=== PATIENT | female | born 1975 | race Caucasian/White ===

== ENCOUNTER 2016-12-01 05:52 | Day surgery (SDC) | payer OTHER ==
[2016-12-01] VITALS (28 sets, daily range): BP systolic 96–125; BP diastolic 53–78; PULSE 64–107; RESP 14–24; TEMP 96.3–98.2; O2SAT 89–98; Ht 160 cm; Wt 86.7 kg
[~2016-12-01] VITALS: Ht 160 cm; Wt 86.7 kg
[2016-12-01 06:24] LABS: BASOPHILS % (AUTO) 0.3 % (0-2); EOSINOPHILS # (AUTO) 0.2 T/MM3 (0-0.5); EOSINOPHILS % (AUTO) 2.3 % (0-4); HGB - HEMOGLOBIN 13.5 GM/DL (12-16); IMMATURE GRANULOCYTE # (AUTO) 0.01 T/MM3 (0.00-0.03); IMMATURE GRANULOCYTE % (AUTO) 0.1 % (0.0-0.5); LYMPHOCYTES # (AUTO) 2.8 T/MM3 (1-4.8); LYMPHOCYTES % (AUTO) 28.2 % (23-45); MEAN CORPUSCULAR HGB 30.5 UUG (26-34); MEAN CORPUSCULAR HGB CONC(MCHC 33.8 GM/DL (31-37); MEAN CORPUSCULAR VOLUME 90.3 UM3 (80-100); MONOCYTES # (AUTO) 0.6 T/MM3 (0-0.8); MONOCYTES % (AUTO) 5.9 % (0-9.0); NEUTROPHILS #(AUTO)-ABSOLUTE 6.3 T/MM3 (1.8-7.7); NEUTROPHILS % (AUTO) 63.2 % (33-66); RED BLOOD COUNT 4.43 M/MM3 (4.00-5.20)
[2016-12-01 06:33] LABS: ALBUMIN 4.2 G/DL (3.5-5.0); ALBUMIN/GLOBULIN RATIO 1.3 RATIO (1.1-2.2); ALKALINE PHOSPHATASE 68 U/L (38-126); ALT (SGPT) 42 U/L (9-52); ANION GAP 12 MEQ/L (5-15); AST (SGOT) 20 U/L (14-36); BUN/CREATININE RATIO 10 RATIO (6-26); CALCIUM 9.2 MG/DL (8.4-10.2); CHLORIDE 104 MEQ/L (98-107); CO2 - CARBON DIOXIDE 26 MEQ/L (22-30); CREATININE 0.7 MG/DL (0.7-1.2); GLOMERULAR FILTRATION RATE 93; GLUCOSE 102 MG/DL (65-110); POTASSIUM 3.8 MEQ/L (3.6-5); SODIUM 142 MEQ/L (134-144); TOTAL PROTEIN 7.4 G/DL (6.3-8.2)
--- NOTE | 2016-12-01 06:50 | ANESPREOP ---
Anesthesia Record Date and Time DATE: 12/01/16 TIME: 06:49 Pre-Op Diagnosis Dysmenorrhea Proposed Surgical Procedure ROBOTIC TOTAL LAP HYST NPO since: Midnight Allergies: Coded Allergies: cefadroxil (Verified Allergy, Mild, HIVES, 12/01/16) morphine (Verified Allergy, Mild, HIVES, 12/01/16) Ht/Wt/BMI Height: 5 ' 3.00 " Weight: 84.800 kg BMI: 33.1 kg/m2 Vital Signs Date Time Temp Pulse Resp B/P Pulse Ox O2 Delivery O2 Flow Rate FiO2 12/01/16 06:05 98.2 77 14 109/74 96 Room Air Medications Inpatient Medications Current Medications Medications (Trade) Dose Ordered Sig/Romario Start Time Stop Time Status Last Admin Dose Admin Lactated Ringer's (Lactated Ringers) 1,000 ml @ 100 mls/hr Q10H 12/01/16 07:00 12/01/16 06:40 100 MLS/HR Currently on Beta Kiley: No Medical/Surgical History Anesthesia PMH: Denies: Anesthesia Reactions (NO AIRWAY ISSUES, SLOW TO WAKE), Cancer, Clotting Problems, Glaucoma, Malignant Hyperthermia, Renal Disease, Sleep Apnea Smoking Status: Never smoker Has pt. smoked today?: No Use Chewing Tobacco?: No Second Hand Exposure: No Substance Use Type: does not use Alcohol Intake: none HX of Last Menstrual Period: november 2016 Past Surgical History Orthopedic Surgeries: Yes - LEG PLATE AND SCREW-L Abdominal Surgeries: Yes - APPY Genitourinary Surgeries: Cardiac Surgeries: Endocrine Surgeries: Reproductive Surgeries: Yes - OVARIAN CYSTECTOMY Neurological Surgeries: Ear Surgeries: Nose Surgeries: Throat Surgeries: Other Surgeries: Yes - left hand nerve repair Anesthesia Adverse Reactions: FOUND none Family Hx of Anesthesia Advers: none Hx of Motion Sickness: No Pertinent Findings Laboratory Tests 12/01/16 06:13 Test 12/01/16 06:13 Human Chorionic Gonadotropin, Qual Negative (NEGATIVE) EKG Rhythm: Sinus Rhythm Physical Exam Respiratory: Lungs clear Cardiovascular: FOUND Regular rate, rhythm Airway Assessment Mallampati Score: II TMD: 3 Fingerbreadths Neck Extension: Good Overall Assessment: No Airway Concerns ASA: 2 Plan Anesthesia Plan: GETA Discussion Discussed risks/options/alternatives of anesthesia and questions answered. Patient consents. Nursing pain assessment noted. Present: Family Member Attestation Statement Prior to the delivery of any anesthetic medication, I examined the patient, developed the plan, obtained the patient's consent and discussed the risk and benefits of the procedure with the patient/guardian. MIKE LAURENT PHYSICIST [facility] December 01, 2016 06:50
[2016-12-01] MEDS ORDERED: ROCURONIUM 50mg/5ml INJECTION IV ONE ×2 (06:59→08:52)
[2016-12-01] MEDS ORDERED: LIDOCAINE 2% (20mg/ml) 5ml PF SDV ONE (06:59)
[2016-12-01] MEDS ORDERED: PROPOFOL 200mg 20 ML IV ONE (06:59)
[2016-12-01] MEDS ORDERED: LIDOCAINE 1% (10mg/ml) 2ml SDV INJ ONE (07:00)
[2016-12-01] MEDS ORDERED: LR 1,000 ML IV SCH (07:00)
[2016-12-01] MEDS ORDERED: BUPIVACAINE 0.25% (2.5mg/ml) INJ 30ml SDV ONE (07:06)
[2016-12-01] MEDS ORDERED: CLINDAMYCIN 600mg IVPB 50 ML IV ONE (07:30)
[2016-12-01] MEDS ORDERED: CIPROFLOXACIN 400 MG in D5W 200 ML IV ONE (07:30)
[2016-12-01] MEDS ORDERED: FENTANYL 250mcg/5ml INJECTION ONE (07:44)
[2016-12-01] MEDS ORDERED: ONDANSETRON 4mg/2ml INJECTION ONE (07:52)
[2016-12-01] MEDS ORDERED: DEXAMETHASONE 4mg/ml - 1ml INJECTION ONE (07:52)
[2016-12-01] MEDS ORDERED: ONDANSETRON 4mg/2ml INJECTION IV PRN ×2 (10:30→10:45)
[2016-12-01] MEDS ORDERED: METOCLOPRAMIDE 10mg/2ml INJECTION IV PRN ×2 (10:30→10:45)
--- NOTE | 2016-12-01 10:38 | GYNOPNOTE1 ---
PA[employer]ER Postoperative Note Date of Operation: 12/01/16 Preoperative Diagnosis: Menorrhagia, Pelvic Pain Postoperative Diagnosis: Same as Preoperative Hysterectomy: RALH Bilateral Salpingectomy Surgeon: Julio Reed MD Anesthesia Provider: Buzz Jacobsen CRNA Anesthesia Type: general Estimated Blood Loss: 30 JULIO REED MD December 01, 2016 10:37
[2016-12-01] MEDS ORDERED: DimenhyDRINATE 50 MG in D5LR 1,000 ML IV ONE (10:39)
[2016-12-01] MEDS ORDERED: HYDROMORPHONE 2mg/ml INJECTION IV PRN (10:45)
--- NOTE | 2016-12-01 10:54 | ANESPO ---
Post-Op Note Date 12/01/16 Time: 10:53 Status Pt Participated in Evaluation: Pt participated in person Vital Signs Date Time Temp Pulse Resp B/P Pulse Ox O2 Delivery O2 Flow Rate FiO2 12/01/16 06:05 98.2 77 14 109/74 96 Room Air Respiratory Function: Airway patent Cardiovascular Function: Regular pulse Telemetry Pattern: SR Mental Status: Alert/oriented Pain Level Intensity: 4 Hydration: IV infusing Complications during Recovery None apparent Follow-Up Instructions Instructions Per Surgeon MIKE LAURENT CRNA December 01, 2016 10:54
[2016-12-01] MEDS: HYDROMORPHONE 2mg/ml INJECTION IV PRN ×2 (11:02→11:13)
[2016-12-01] MEDS: SIMETHICONE 80 MG CHEWABLE TABLET PO SCH ×3 (13:19→21:33)
[2016-12-01] MEDS: IBUPROFEN 800 MG TABLET PO PRN (14:35)
[2016-12-01 16:18] LABS: HCT - HEMATOCRIT 39.3 % (36-46); HGB - HEMOGLOBIN 12.6 GM/DL (12-16); MEAN CORPUSCULAR HGB 29.1 UUG (26-34); MEAN CORPUSCULAR HGB CONC(MCHC 32.1 GM/DL (31-37); MEAN CORPUSCULAR VOLUME 90.8 UM3 (80-100); MEAN PLATELET VOLUME 10.3 UM3 (9.4-12.4); RED BLOOD COUNT 4.33 M/MM3 (4.00-5.20); WBC - WHITE BLOOD COUNT 17.6 T/MM3 (4.5-11.0)
[2016-12-01] MEDS ORDERED: D5LR 1,000 ML IV SCH (17:20)
--- NOTE | 2016-12-01 18:15 | GSPOSTPN ---
Postoperative Progress Note 12/01/16 vss af a&o looks great q&a hgb fine. sitting up in bed eating. MARIA ANTONIA REED MD December 01, 2016 18:15
[2016-12-01] MEDS: HYDROCODONE/APAP 5 mg/325 mg TABLET PO PRN (20:16)
[2016-12-02] MEDS: IBUPROFEN 800 MG TABLET PO PRN (00:08)
[2016-12-02 00:11] VITALS: BP 113/61; PULSE 72; RESP 20; TEMP 99; O2SAT 96
[2016-12-02] MEDS: HYDROCODONE/APAP 5 mg/325 mg TABLET PO PRN (03:16)
[2016-12-02 03:18] VITALS: BP 121/67; PULSE 75; RESP 20; TEMP 98.2; O2SAT 96
[2016-12-02 07:27] VITALS: PULSE 68; RESP 20
[2016-12-02 07:28] VITALS: BP 119/67; PULSE 68; RESP 16; TEMP 97.1; O2SAT 98
--- NOTE | 2016-12-02 08:27 | GSPOSTPN ---
Postoperative Progress Note 12/02/16 vss af incisions dry feeling good. no c/o disc dc instructions given q&a f/u 1 wk for stitches. MARIA ANTONIA REED MD December 02, 2016 08:27
[2016-12-02] MEDS ORDERED: HYDR-4246 PO (08:31)
[2016-12-02] MEDS ORDERED: IBUP-1547 PO (08:31)
[2016-12-02] MEDS ORDERED: DOCUSATE CALCIUM 240 MG CAPSULE PO SCH (09:00)
--- NOTE | 2016-12-02 09:11 | OPNOTEF ---
DATE OF SURGERY: 12/01/2016 PREOPERATIVE DIAGNOSIS: 41-year-old white female, G1, P1, with menorrhagia and pelvic pain and left-sided ovarian cyst. POSTOPERATIVE DIAGNOSIS: Same, plus abdominal adhesions. OPERATION: Robotic assisted total laparoscopic hysterectomy with bilateral salpingectomy. EBL: 30 ml SURGEON: Julio Hernandez MD ANESTHESIA: General by Buzz Jacobsen CRNA. COMPLICATIONS: None. DESCRIPTION OF PROCEDURE After adequate general anesthesia and intubation, the patient was positioned, prepped and draped in the usual robotic fashion. A heavy weighted speculum was placed posteriorly in the vaginal tract and then a Medina catheter was inserted to drain the bladder. A [place] retractor was used anteriorly to visualize the cervix which was grasped at the 12 o'clock position with a single-tooth tenaculum. The uterus sounded to 9 cm. It was anteverted. A single figure of eight suture was placed in the cervix for retraction purposes. Then a large uterine manipulator was inserted through the cervix and the balloon was inflated. The cup was then brought down over the cervix. Then the Avtar and the posterior heavy weighted speculum were removed and the uterus was able to be palpated abdominally. I then changed gloves and approached the abdomen. An area was anesthetized with 0.25% Marcaine several centimeters superior to the umbilicus in the midline and then a #11 blade was used to make a 12 mm incision and then the abdomen was tented and a Veress needle was inserted. Saline drop test confirmed intraabdominal placement and then the abdomen was insufflated. Veress needle was then removed and then a 12 mm bladeless trocar was inserted. Once it was inside the abdomen, the sheath was left in place and the trocar was removed and the camera was inserted confirming intraabdominal placement and no obvious organ injury. Then the interior cuff on the 12 mm trocar was inflated. I then placed the 8 mm robotic trocars bilaterally approximately 10 cm lateral to the umbilicus. I anesthetized with Marcaine and made an incision with an 11-blade and then placed the ports under direct vision. This was repeated in the left upper quadrant for the assistant produce manager port as well. Once all the ports were in place and advanced to the appropriate markings, then the bed was lowered and the patient was placed in 30 degrees Trendelenburg. We then backed it off to 22 degrees Trendelenburg and I still had an adequate view so the robot was brought forward and docked and I placed the bipolar fenestrated in the left arm and the monopolar scissors in the right arm. Then I removed my gown and approached the robotic console to begin the hysterectomy. The bladder was already drained. There were multiple filmy adhesions to the abdominal wall that were initially blocking our view. I took them down sharply and bluntly and hemostasis was confirmed. These were probably from her previous appendectomy at age 16. The uterus was elevated and I started by identifying the ureters bilaterally. Since the ovaries looked normal bilaterally, I decided to leave them in place which was the preoperative plan approved by the patient. I drained a small simple cyst on the left ovary. Then I cauterized the round ligaments bilaterally and transected them and then opened up the broad ligament. Then I dissected the bladder off the lower uterine segment by creating a plane, then careful dissection. I filled the bladder with fluid to discern the edges and I dissected until the edge of the bladder was well below the manipulator cuff. Then I further dissected open the broad ligaments. I removed the tubes bilaterally with cautery and sharp dissection. Fallopian tubes were removed bilaterally by cauterizing their attachments and transecting them and dissecting them out. Once I had free the tubes bilaterally, then I went through the ovarian suspensory ligaments bilaterally thus leaving the ovaries. I then began skeletonizing the sides until I could identify the uterine vessels bilaterally. I could clearly see the posterior portion of the cuff cup and the anterior portion as I dissected off the bladder from the anterior portion of the uterus. I next cauterized the uterine vessels bilaterally, first by sealing them close to the uterus and then cauterizing down to the level of the cuff cup. Once the blood supply had been adequately cauterized, it was transected with monopolar scissors. I dissected both sides free until I was clear all the way around the cuff. Once it was clear all the way around, then I began dissecting through the vaginal cuff to the cup. I did this with monopolar scissors, starting anteriorly and first going to the right and then left until the uterus and tubes were completely free. They then were delivered vaginally and sent to pathology. We then copiously irrigated the pouch of Jose E and the vaginal cuff and a slight amount of cautery was used to gain some hemostasis on the vaginal cuff. Then the cuff closure was begun. Vaginal cuff was closed using 180-day 2-0 V-Loc suture starting from the right edge, incorporating the uterosacral ligament in a corner-type stitch across all the way to the left. Then another 180-day 2-0 V-Loc suture was used starting from the left edge, incorporating the uterosacral ligament in a corner-type stitch across all the way to the right. This essentially made a double-layer closure in the middle of the vaginal cuff. I used large bites in the vaginal cuff because I was able to dissect the bladder down so well. Then additional irrigation was used to cleanse the area. Cuff was hemostatic and cleansed and the ureters were identified bilaterally and peristalsing again. I filled the bladder with fluid and no bladder injury or leakage was noted. This now being complete and the pelvis being reexamined bilaterally and found to be hemostatic, I was then ready to scrub back in and undock the robot. I reconfirmed hemostasis prior to removing the instruments. Then I removed each of the 8 mm ports under direct vision and they were hemostatic. Then I removed the 12 mm port and began closure. The fascia was closed with 2-0 Vicryl on the 12 mm port. 4.0 vicryly was used to close the skin. Additional Marcaine was placed. Then I went vaginally and examined the vaginal cuff and it was hemostatic. Urine was clear and free flowing. I brought the patient out of Trendelenburg and flattened her. At this point the surgery was complete and the patient awoke and went to Recovery in stable condition. Uterus and tubes were sent to surgical pathology. CÉSAR
== END 2016-12-02 09:58 | disposition home or self-care (01) ==
LOC: SCU 05:52 → SRG 07:02 → SCU 12-02 09:58
PROVIDERS: ATTEND Obstetrics & Gynecology
DX: N72 Inflammatory disease of cervix uteri (principal); N92.0 Excessive and frequent menstruation with regular cycle; N83.292 Other ovarian cyst, left side; N85.4 Malposition of uterus; K66.0 Peritoneal adhesions (postprocedural) (postinfection); E66.9 Obesity, unspecified; Z68.33 Body mass index [BMI] 33.0-33.9, adult; L71.9 Rosacea, unspecified
CPT/HCPCS: 36415; 49322; 58571; 80053; 84703; 85025; 85027; 86850; 86900; 86901; J0330; J0744; J1100; J1170; J1240; J2405; J2704; J3010; J7030; J7060; J7120; J7121; S2900

== ENCOUNTER 2017-03-07 10:37 | Inpatient (IN) ==
--- NOTE | 2017-03-07 10:48 | Emergency Department Report ---
Abdominal Pain HPI - General Stated Complaint: abd pain Time Seen by Provider: 03/07/17 10:48 Source: patient, family Mode of arrival: ambulatory Limitations: no limitations - History of Present Illness HPI narrative: Patient is a 41-year-old female, presents to the emergency room for evaluation of abdominal pain. Patient went to bed last night normally, woke up this morning feeling well ate a banana smoothie. Patient went to work approximately an hour prior to arrival patient developed severe crampy diffuse abdominal pain with associated nausea and vomiting. Patient denies any fevers, chills, last bowel movement was yesterday normal MD complaint: abdominal pain Onset (ago): hour(s) Consistency: constant Location: diffuse Severity scale (1-10): 9 Quality: cramping - Related Data Home Medications Medication Instructions Recorded Confirmed Ibuprofen 400 mg PO Q4H PRN 03/07/17 03/07/17 diphenhydrAMINE HCl [Benadryl] 25 mg PO Q4H PRN 03/07/17 03/07/17 Allergies Allergy/AdvReac Type Severity Reaction Status Date / Time cefadroxil Allergy Mild HIVES Verified 03/07/17 10:50 morphine Allergy Mild HIVES Verified 03/07/17 10:50 Review of Systems Constitutional: Denies: fever, chills, weakness ENT: Denies: ear pain, throat pain Cardiovascular: Denies: chest pain, palpitations, dyspnea on exertion Respiratory: Denies: cough, dyspnea, wheezes Gastrointestinal: Reports: abdominal pain, nausea. Denies: vomiting, constipation, hematemesis Genitourinary: Denies: urgency, dysuria, frequency Neurological: Denies: headache, weakness, numbness Psychiatric: Denies: anxiety, depression Endocrine: Denies: fatigue Hematological/Lymphatic: Denies: easy bleeding PFSH Surgical History: Appendectomy with cystectomy from ovary. Hysterectomy - Social History Smoking status: Never smoker Substance use type: does not use Alcohol intake frequency: does not drink Physical Exam - Limitations Limitations: no limitations - General General appearance: alert, in no apparent distress, obese - ENT ENT exam: Present: normal oropharynx, mucous membranes moist - Neck Neck exam: Present: full ROM, trachea midline - Chest Chest inspection: Present: symmetric chest wall rise. Absent: tenderness - Respiratory Respiratory exam: Present: normal lung sounds bilaterally. Absent: respiratory distress, wheezes, stridor - Cardiovascular Cardiovascular exam: Present: regular rate, normal rhythm, normal heart sounds - Abdominal Exam Abdominal exam: Present: soft, tenderness (patient diffusely tender, however localizes suprapubically), normal bowel sounds. Absent: distention, Singh's sign, Rovsing's sign, bruit, pulsatile mass - Back Exam Back exam: Absent: tenderness, CVA tenderness (R), CVA tenderness (L) - Skin Skin exam: Present: warm, dry - Neurological Exam Neurological exam: Present: alert, oriented X3 - Psychiatric Psychiatric exam: Present: normal affect, normal mood Abdominal Pain - MDM Narrative Medical decision making narrative: Discussed case with Dr. Kern, admit patient nothing by mouth, pain meds nausea medications he will follow-up - Differential Diagnosis Differential diagnosis: Likely: abdominal pain, acute appendicitis, calculus of kidney, constipation, diverticulitis, other, small bowel obstruction - Medical Records Attestation: I reviewed the patient's medical records. - Lab Data Attestation: I reviewed the patient's lab results. Result diagrams: 03/07/17 11:07 03/07/17 11:07 - Radiology Data Attestation: I reviewed the patient's radiology results. CT scan shows a ruptured cyst, mild constipation, and possible small bowel obstruction Disposition Clinical Impression: Small bowel obstruction Disposition: 02 To [facility] Condition: Stable Time of Disposition: 14:11 - Seen By: physician
[2017-03-07] MEDS ORDERED: NS 1,000 ML IV ONE (10:49)
[2017-03-07] MEDS ORDERED: PROCHLORPERAZINE 10 MG/2 ML INJECTION IVP ONE (11:04)
[2017-03-07] MEDS ORDERED: HYDROMORPHONE 2 MG/ML INJECTION IVP ONE (11:04)
[2017-03-07] MEDS: SALINE FLUSH 10ml SYRINGE IVF PRN ×2 (11:30→16:03)
--- OUTSIDE RECORDS SUMMARY | 2017-03-07 11:37 | External Medical Summary | Referral Summary ---
:1975 [facility] Address [address] [place] [address] [place] [address] Care Team Providers Name Role Phone Haider Daly Primary Care Physician Encounter VC Date(s): 09/25/15 - 09/25/15 [facility] [place] [phone] [place] Discharge Disposition: 01-Home or Self Care Attending Physician: Haider Daly MD Admitting Physician: Haider Daly MD Vital Signs No data available for this section Problem List Condition Effective Dates Status Health Status Informant Atypical squamous cells of Active undetermined significance (ASCUS) on Papanicolaou smear of cervix(Confirmed)1 1HPV neg Allergies, Adverse Reactions, Alerts Substance Reaction Severity Status morphine Itching Active Medications melatonin 3 mg oral tablet 6 mg 2 tabs, Oral, Bedtime (once a day), as needed for insomnia, # 60 tabs, 0 Refill(s) Start Date: 07/16/15 Status: OrderedmetroNIDAZOLE 1% topical cream 1 cat, Topical, Daily, # 30 g, 0 Refill(s), Pharmacy: [id number] Start Date: 07/16/15 Status: Ordered Results No data available for this section Immunizations Vaccine Date Refusal Reason tetanus/diphth/pertuss (Tdap) adult/adol 07/16/15 hepatitis B adult vaccine 09/25/15 influenza virus vaccine, live 07/16/15 Procedures Procedure Date Related Diagnosis Body Site Appendectomy L hand nerve repair plate L tibia fx Social History Social History Type Response Smoking Status Never smoker Assessment and Plan No data available for this section
--- OUTSIDE RECORDS SUMMARY | 2017-03-07 11:37 | External Medical Summary | Referral Summary ---
:1975 [facility] Address [address] [place] [address] [place] [address] Care Team Providers Name Role Phone Haider Daly Primary Care Physician Encounter VC Date(s): 01/06/16 - 01/06/16 [facility] [place] [phone] [place] Discharge Diagnosis: Vaginitis Discharge Diagnosis: Atypical squamous cells of undetermined significance (ASCUS ) on Papanicolaou smear of cervix Discharge Disposition: 01-Home or Self Care Attending Physician: Yvonne Roach APRN Admitting Physician: Yvonne Roach APRN Vital Signs Most recent to oldest [Reference Range]: 1 Peripheral Pulse Rate [60-100 bpm] 76 bpm (01/06/16 8:53 AM) Blood Pressure [90-140/60-90 mmHg] 116/78 mmHg (01/06/16 8:53 AM) Problem List Condition Effective Dates Status Health Status Informant Atypical squamous cells of Active undetermined significance (ASCUS) on Papanicolaou smear of cervix(Confirmed)1 1HPV neg Allergies, Adverse Reactions, Alerts Substance Reaction Severity Status morphine Itching.... Active Medications Augmentin 875 mg-125 mg oral tablet 1 tabs, Oral, q12hr, X 10 days, # 20 tabs, 0 Refill(s), Pharmacy: [id number] Start Date: 01/06/16 Stop Date: 01/16/16 Status: Orderedmelatonin 3 mg oral tablet 6 mg 2 tabs, Oral, Bedtime (once a day), as needed for insomnia, # 60 tabs, 0 Refill(s) Start Date: 07/16/15 Status: OrderedmetroNIDAZOLE 1% topical cream 1 cat, Topical, Daily, # 30 g, 0 Refill(s), Pharmacy: [id number] Start Date: 07/16/15 Status: Ordered Results No data available for this section Immunizations Vaccine Date Refusal Reason tetanus/diphth/pertuss (Tdap) adult/adol 07/16/15 hepatitis B adult vaccine 10/27/15 hepatitis B adult vaccine 09/25/15 influenza virus vaccine, live 07/16/15 Procedures Procedure Date Related Diagnosis Body Site Appendectomy L hand nerve repair plate L tibia fx Social History Social History Type Response Smoking Status Never smoker Assessment and Plan Extracted from: Title: Office Visit Note-vaginitis Author: Yvonne Roach [employer] Date: 01/05 Assessment/Plan 1.Vaginitis Discussed patient's symptoms and multiple etiologies. Cannot exclude candidaas a possibility this can cause a lot of external rawness and irritation. As she has had to [id number] treatments of Monistat I do not feel like we need to add Diflucan . As the pustules were noted at the introitus we'll start [id number] mg one by mouth twice a day 10 days. Discussed with patient cannot completely exclude herpesfrom the diagnoses. Discuss edculturing one of the pustules. Patient refusesdue to her level of pain. She is fairly certain she does not have any STDs. Will check chlamydia and gonorrhea screenrelated to her amount of discharge. Plan repeat exam on Tuesday. Sooner if her symptoms get worse or she develops any fever or abdominal pain. Recommend she use external Monistat or a and D ointmentto provide some external comfort. Ordered: Chlam/GC, ThinPrep, Amplified Genital Culture Office Visit Level 3 Est 96099 Atypical squamous cells of undetermined significance (ASCUS) on Papanicolaou smear of cervix Repeat Pap smear today. We'll notify her of results. Ordered: Office Visit Level 3 Est [id number] Orders: amoxicillin-clavulanate, 1 tabs, Oral, q12hr, X 10 days, # 20 tabs, 0 Refill(s), Pharmacy: [id number]
--- OUTSIDE RECORDS SUMMARY | 2017-03-07 11:37 | External Medical Summary | Referral Summary ---
:1975 [facility] Address [address] [place] [address] [place] [address] Care Team Providers Name Role Phone Haider Daly Primary Care Physician Encounter VC Date(s): 08/16/16 - 08/16/16 [facility] [place] [phone] [place] Discharge Diagnosis: Morbid obesity Discharge Diagnosis: Rosacea Discharge Diagnosis: Pain in lateral portion of left ankle Discharge Diagnosis: Pelvic pain Discharge Disposition: 01-Home or Self Care Attending Physician: Yvonne Roach APRN Admitting Physician: Yvonne Roach APRN Vital Signs Most recent to oldest [Reference Range]: 1 Temperature Tympanic [36.6-38.1 degC] 37.1 degC (08/16/16 2:09 PM) Peripheral Pulse Rate [60-100 bpm] 76 bpm (08/16/16 2:09 PM) Respiratory Rate [14-20 br/min] 16 br/min (08/16/16 2:09 PM) Blood Pressure [90-140/60-90 mmHg] 134/84 mmHg (08/16/16 2:09 PM) Problem List Condition Effective Dates Status Health Status Informant Atypical squamous cells of Active undetermined significance (ASCUS) on Papanicolaou smear of cervix(Confirmed)1 Morbid obesity(Confirmed) Active Rosacea(Confirmed) Active 1HPV neg Allergies, Adverse Reactions, Alerts Substance Reaction Severity Status morphine Itching.... Active Medications melatonin 3 mg oral tablet 6 mg 2 tabs, Oral, Bedtime (once a day), as needed for insomnia, # 60 tabs, 0 Refill(s) Start Date: 07/16/15 Status: Orderedminocycline 50 mg oral tablet 50 mg 1 tabs, Oral, Daily, # 90 tabs, 1 Refill(s), Pharmacy: [id number], 1 tabs Oral Daily Start Date: 08/16/16 Status: Orderedphentermine 37.5 mg oral tablet 37.5 mg 1 tabs, Oral, Daily, # 30 tabs, 0 Refill(s) Start Date: 08/16/16 Status: Ordered Results No data available for this section Immunizations Given and Recorded Vaccine Date Status Refusal Reason tetanus/diphth/pertuss (Tdap) adult/adol 07/16/15 Given hepatitis B adult vaccine1 04/07/16 Given hepatitis B adult vaccine2 04/01/16 Given hepatitis B adult vaccine 10/27/15 Given hepatitis B adult vaccine 09/25/15 Given influenza virus vaccine, live 07/16/15 Given 1Early/Late Reason: Other : dropped consent sheet for scanning - later filling out charge. [id number] Comment: wrong order Procedures Procedure Date Related Diagnosis Body Site Appendectomy L hand nerve repair plate L tibia fx Social History Social History Type Response Smoking Status Never smoker Assessment and Plan Extracted from: Title: Office Visit Note-pelvic pain Author: Yvonne Roach [facility] [employer] [employer] Date: 08/16/16 Assessment/Plan 1.Pelvic pain Unknown etiology. Pelvic sonogram for further evaluation. She is to let me know if the pain gets worse. Ordered: US Transvaginal/Pelvic Complete 2.Morbid obesity Increase phentermine to 37.5 mg daily. Side effects reviewed. Plan blood pressure and weight check in one month. Encouraged her to continue on her weight loss efforts. Vitamin Carol Ann try some salt water garglesand take more ibuprofen or acetaminophenQ haven't done that in the last 6 hours. Do think you can try to go to school tomorrow? 3.Rosacea Start minocycline 50 mg daily. 4.Pain in lateral portion of left ankle Resolved. She is to let me know if it recurs.
--- OUTSIDE RECORDS SUMMARY | 2017-03-07 11:37 | External Medical Summary | Referral Summary ---
:1975 Author Organization [facility] [place] [address] Care Team Providers Name Role Phone Haider Daly Primary Care Physician Encounter VC Date(s): 07/16/15 - 07/16/15 [facility] [place] [address] [place] Discharge Diagnosis: Obesity Discharge Diagnosis: Elevated liver enzymes Discharge Diagnosis: Low back pain Discharge Diagnosis: Well woman exam with routine gynecological exam Discharge Diagnosis: Fatigue Discharge Diagnosis: Anemia Discharge Diagnosis: Family history of diabetes mellitus Discharge Diagnosis: Insomnia Discharge Diagnosis: Need for vaccination Discharge Diagnosis: Rosacea Discharge Disposition: 01-Home or Self Care Attending Physician: Yvonne Roach APRN Admitting Physician: Yvonne Roach APRN Vital Signs Most recent to oldest [Reference Range]: 1 Temperature Tympanic [36.6-38.1 degC] 37.0 degC (07/16/15 1:34 PM) Peripheral Pulse Rate [60-100 bpm] 80 bpm (07/16/15 1:34 PM) Respiratory Rate [14-20 br/min] 20 br/min (07/16/15 1:34 PM) Blood Pressure [90-140/60-90 mmHg] 134/86 mmHg (07/16/15 1:34 PM) Problem List No data available for this section Allergies, Adverse Reactions, Alerts Substance Reaction Severity Status morphine Itching Active Medications melatonin 3 mg oral tablet 6 mg 2 tabs, Oral, Bedtime (once a day), as needed for insomnia, # 60 tabs, 0 Refill(s) Start Date: 07/16/15 Status: OrderedmetroNIDAZOLE 1% topical cream 1 cat, Topical, Daily, # 30 g, 0 Refill(s), Pharmacy: [id number] Start Date: 07/16/15 Status: Ordered Results No data available for this section Immunizations Vaccine Date Refusal Reason tetanus/diphth/pertuss (Tdap) adult/adol 07/16/15 influenza virus vaccine, live 07/16/15 Procedures Procedure Date Related Diagnosis Body Site Appendectomy L hand nerve repair plate L tibia fx Social History Social History Type Response Smoking Status Never smoker Assessment and Plan Extracted from: Title: Office Visit Note-WWE Author: Yvonne Roach BUSINESS INTELLIGENCE ARCHITECT Date: 07/16/15 Assessment/Plan 1.Well woman exam with routine gynecological exam Discussed general health maintenance and disease prevention. Encouraged healthy diet and exercise more days of the week than not. Current guidelines according to the [employer] recommend for average risk women a mammogram at age 45 for baseline, then every year till age 54. Beginning at age 55 every two years till life expectancy is less than 10 years. Discussed current Pap smear/pelvic exam guidelines. Pap plus HPV today. We' ll call with results and when next indicated. Labs: as ordered. Immunizations reviewed. Flu shot yearly. Boostrix given. Colonoscopydue: Age 52 DEXA scandue: Age 67 Recommend yearly wellness exams. Recommend she take vitamin daily. Ordered: Hemoglobin A1c HPV HR, if positive reflex HPV Genotype Lipid Panel 2.Fatigue York sleep score is 2. Lab for further evaluation. Ordered: TSH with Reflex Free T4 3.Anemia Lab today. Ordered: CBC w/ Differential 4.Elevated liver enzymes Lab as ordered. Elevated lipid pursue liver sonogram and hepatitis screening. Ordered: Comprehensive Metabolic Panel 5.Obesity Discussed and stressed the importance of weight loss for her overall health status. Discussed portion control, exerciseand healthy food choices. Ordered: Hemoglobin A1c Lipid Panel 6.Low back pain Encourage strengthening exercises for the back. 7.Insomnia Offered sleep aid. Patient denies need. 8.Need for vaccination 9.Family history of diabetes mellitus Screening hemoglobin A1c both due to family history of diabetes and obesity. Ordered: Hemoglobin A1c 10.Rosacea Discussed rosacea. Trial of metronidazolecream daily. Discussed importance of good moisturizers and sunscreen. Orders: metroNIDAZOLE topical, 1 cat, Topical, Daily, # 30 g, 0 Refill(s), Pharmacy: [id number]
--- OUTSIDE RECORDS SUMMARY | 2017-03-07 11:37 | External Medical Summary | Continuity of Care Document ---
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 Medications Medication Instructions Dosage Effective Dates (start - stop) Status Comments Drug Treatment Unknown Problems Condition Effective Dates (start - stop) Clinical Status Encntr for f/u exam aft trtmt for cond - oth than malig neoplm Nonscarring hair loss, unspecified Encntr for f/u exam aft trtmt for cond oth than malig neoplm Other ovarian cyst, left side Pelvic and perineal pain Menorrhagia Other ovarian cyst, left side Pelvic and perineal pain Other ovarian cyst, left side Pelvic and perineal pain Menorrhagia Other ovarian cyst, left side Menorrhagia Pelvic and perineal pain Procedures Procedure Date Postop followup visit Results Test Name Date and Time Measure Units Reference Range Abnormal Flag Comments Unknown Advance Directives Directive Yes / No Effective Date File Name Unknown Encounters Encounter Practice Location Reason(s) Diagnoses Date Provider Care Description For Visit Team Members [facility] post-operati Encntr for f/u exam [facility] trt[facility] for cond 5-[address], examination oth than malig 7 Medical PO Box (chief neoplm Center 1522, complaint) [place], [address], [place], [place], [id number], [place], [place] [id number] tel:+ , [place]. tel: [phone] [facility] Nonscarring hair May-3 [facility] loss, 1-201 Julio. 700 [facility] [place], unspecifiedEncntr 7 Medical PO Box for f/u exam aft Center 1522, trtmt for cond oth , [place], erickson wolf neoplm [address], [place], [place], [id number], [place], [place] [id number] tel: , [place]. tel: [phone] [facility] Other ovarian cyst, May-2 [facility] left sidePelvic and 4-201 Julio. 700 [facility] [place], perineal 7 Medical PO Box painMenorrhagia Center 1522, , [place], [address], [place], [place], , [place], [place] tel: , [place]. tel: [phone] [facility] Other ovarian cyst, May-1 Muhammad In Womens left sidePelvic and 6-201 Marcella. Health [place], perineal 7 700 PO Box painMenorrhagia Medical 1522, [place], , [facility] [place], 120, [id number], [place], [place], tel: , [place]. tel: [phone] [facility] Other ovarian cyst, May-0 David In Womens left 5-201 Julio. 700 [facility] [place], sideMenorrhagiaPelv 7 Medical PO Box ic and perineal Center 1522, pain , [place], [address], [place], [place], , [place], [place] tel: , . tel: [phone] [facility] Other ovarian cyst, Mar-0 David In Womens left sidePelvic and 1-201 Julio. 700 [facility] [place], perineal pain 7 Medical PO Box Center 1522, , [place], [address], [place], [place], , [place], [place] [id number] tel: , [place]. tel: [phone] [facility] Joel-1 David In Womens 7-200 Julio. 700 Health [place], 8 Medical PO Box Center 1522, [place], [address], [place], [place], [id number], [place], [id number] tel:1968 , [place]. [id number] tel: [phone] Family History Family Member Diagnosis Age At Onset Paternal Grandmother Diabetes mellitus No family history of Colon Cancer No family history of Hypertension No family history of Ovarian Cancer No family history of Breast Cancer Maternal Grandfather Cardiovascular Disease No family history of Stroke Father Diabetes mellitus No family history of Lung Disease No family history of Thyroid Disorder No family history of Epilepsy No family history of Osteoporosis No family history of Kidney Problems Immunizations Vaccine Date Status Comments Unknown Payers Payer name Insurance type Covered green party ID Authorization(s) [employer] CI [id number] Social History Type Description Quantity Date Captured Alcohol Use Details Unknown Caffeine Use Details Unknown Tobacco Use Status Unknown Smoking Status Never smoker Vital Signs Date / Height Weight BMI Pulse Blood Temperature Respiratory Body Head BMI Time: Rate Pressure Rate Surface Circumference percentile Area 193.00 78 120/71 98.10 lbs /min mm[Hg] 3:05 PM Chief Complaint And Reason For Visit Most recent encounter only, dated '01/12/2017 15:00'. post-operative examination (chief complaint). Description: She had a Robotic assisted lap hyst w/Bilat Salpingectomy on 12/01/2016. She is 6 Weeks post-op. Preoperative indications for the surgery were pelvic and perineal pain, other ovarian cyst, left side and menorrhagia. Pain level is none. Shedescribes her bleeding amount as none. Patient denies constipation, diarrhea, distention, dysuria, fever and incision drainage. Her incision is healing well. She was not readmitted due to complications from this surgery within the 30 day postoperative period. Reason For Referral Reason For Referral Unknown Plan Of Care Date Type Action Status Goal Lifestyle education regarding diet completed Date Type Problem Goal Intervention Status Start Date Unknown. History Of Present Illness Encounter Date Complaint History Of Present Illness post-operative examination She had a Robotic assisted lap hyst w/ Bilat Salpingectomy on 12/01/2016. She is 6 Weeks post-op. Preoperative indications for the surgery were pelvic and perineal pain, other ovarian cyst, left side and menorrhagia. Pain level is none. She describes her bleeding amount as none. Patient denies constipation, diarrhea, distention, dysuria, fever and incision drainage. Her incision is healing well. She was not readmitted due to complications from this surgery within the 30 day postoperative period. Functional Status Encounter Date Functional Assessment Cognitive Assessment Unknown Medications Administered Medication Instructions Dosage Effective Dates (start - stop) Status Comments Drug Treatment Unknown Instructions Date Instruction Additional Information Giving encouragement to exercise Related to Body mass index 33.0- 33.9 Lifestyle education regarding diet Related to Body mass index 33.0-33.9
--- OUTSIDE RECORDS SUMMARY | 2017-03-07 11:37 | External Medical Summary | Referral Summary ---
:1975 Author [facility] Address [address] [place] [address] [place] [address] Care Team Providers Name Role Phone Haider Daly Primary Care Physician Encounter VC Date(s): 10/27/15 - 10/27/15 [facility] [place] [phone] [place] Discharge Disposition: [...] Substance Reaction Severity Status morphine Itching Active 08-OCT-2015 17:48:51<$> Medications melatonin 3 mg oral tablet 6 mg 2 tabs, Oral, Bedtime (once a day), as needed for insomnia, # 60 tabs, 0 Refill(s) Start Date: 07/16/15 Status: OrderedmetroNIDAZOLE 1% topical cream 1 cat, Topical, Daily, # 30 g, 0 Refill(s), Pharmacy: [id number] Start Date: 07/16/15 Status: Ordered Results No [...]
--- OUTSIDE RECORDS SUMMARY | 2017-03-07 11:37 | External Medical Summary | Referral Summary ---
:1975 Author Organization [facility] [place] [address] Care Team Providers Name Role Phone Haider Daly Primary Care Physician Encounter VC Date(s): 01/09/16 - 01/09/16 [facility] [place] [phone] [place] Discharge Diagnosis: Group B streptococcal infection Discharge Diagnosis: Cecy vaginitis Discharge Disposition: 01-Home or Self Care Attending Physician: Yvonne Roach APRN Admitting Physician: Yvonne Roach APRN Vital Signs Most recent to oldest [Reference Range]: 1 Temperature Tympanic [36.6-38.1 degC] 37.1 degC (01/09/16 9:06 AM) Peripheral Pulse Rate [60-100 bpm] 76 bpm (01/09/16 9:06 AM) Blood Pressure [90-140/60-90 mmHg] 122/74 mmHg (01/09/16 9:06 AM) Problem List Condition Effective Dates Status Health Status Informant Atypical squamous cells of Active undetermined significance (ASCUS) on Papanicolaou smear of cervix(Confirmed)1 1HPV neg Allergies, Adverse Reactions, Alerts Substance Reaction Severity Status morphine Itching.... 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 2.Cecy vaginitis Diflucan 150 mg one by mouth today and repeat in one week. Continue probiotics. If symptoms fail to improve let me know.
--- OUTSIDE RECORDS SUMMARY | 2017-03-07 11:37 | External Medical Summary | Referral Summary ---
:1975 Author Organization [facility] [place] [address] Care Team Providers Name Role Phone Haider Daly Primary Care Physician Encounter VC Date(s): 08/30/16 - 08/30/16 [facility] [place] [address] [place] Discharge Diagnosis: Left ovarian cyst Discharge Diagnosis: Adult acne Discharge Diagnosis: Morbid obesity Discharge Diagnosis: Rosacea Discharge Disposition: 01-Home or Self Care Attending Physician: Yvonne Roach APRN Admitting Physician: Yvonne Roach APRN Vital Signs Most recent to oldest [Reference Range]: 1 Temperature Tympanic [36.6-38.1 degC] 37.5 degC (08/30/16 8:26 AM) Peripheral Pulse Rate [60-100 bpm] 104 bpm *HI* (08/30/16 8:26 AM) Blood Pressure [90-140/60-90 mmHg] 122/76 mmHg (08/30/16 8:26 AM) Problem List Condition Effective Dates Status Health Status Informant Atypical squamous cells of Active undetermined significance (ASCUS) on Papanicolaou smear of cervix(Confirmed)1 Morbid obesity(Confirmed) Active Rosacea(Confirmed) Active 1HPV neg Allergies, Adverse Reactions, Alerts Substance Reaction Severity Status morphine Itching.... Active Medications Augmentin 875 mg-125 mg oral tablet 1 tabs, Oral, q12hr, X 10 days, # 20 tabs, 0 Refill(s), Pharmacy: [id number] Start Date: 08/30/16 Stop Date: 09/09/16 Status: Ordereddoxycycline hyclate 100 mg oral tablet 100 mg 1 tabs, Oral, BID, X 14 days, # 28 tabs, 0 Refill(s), Pharmacy: [facility], 1 tabs Oral BID,x14 days Start Date: 08/23/16 Stop Date: 09/06/16 Status: Orderedmelatonin 3 mg oral tablet 6 mg 2 tabs, Oral, Bedtime (once a day), as needed for insomnia, # 60 tabs, 0 Refill(s) Start Date: 07/16/15 Status: Orderedminocycline 50 mg oral tablet 50 mg 1 tabs, Oral, Daily, # 90 tabs, 1 Refill(s), Pharmacy: [id number], 1 tabs Oral Daily Start Date: 08/16/16 Status: Orderedphentermine 37.5 mg oral tablet 37.5 mg 1 tabs, Oral, Daily, # 30 tabs, 0 Refill(s) Start Date: 08/16/16 Status: Ordered Results Chemistry Most recent to oldest [Reference Range]: 1 Beta hCG Ql Negative (08/30/16 8:18 AM) Immunizations Given and Recorded Vaccine Date Status Refusal Reason tetanus/diphth/pertuss (Tdap) adult/adol 07/16/15 Given hepatitis B adult vaccine1 04/07/16 Given hepatitis B adult vaccine2 04/01/16 Given hepatitis B adult vaccine 10/27/15 Given hepatitis B adult vaccine 09/25/15 Given influenza virus vaccine, live 07/16/15 Given 1Early/Late Reason: Other : dropped consent sheet for scanning - later filling out charge. 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 Based on exam todayI do not think it is responding to doxycycline. Change to Augmentin 875 one by mouth twice a day 10 days. Recommend appointment with Dr. Hernandezfor further evaluation and management. If her pain gets worse between now and appointment with Dr. Hernandez she is to contact the office. 2.Abnormal pelvic ultrasound Repeat test negative. Quantitative hCG pending. We'll call her the results. UDS sonogram results with her in detail. Ordered: Beta hCG Quantitative 3.Adult acne I suspect this is some mild adult acne. Recommended she utilize acne face wash for her chest. Avoid wearing necklacesfor a while. May use some hydrocortisone cream itching occursas I cannot exclude allergic type reaction. 4.Rosacea Continue good moisturizing for the face. Gentle face wash. We'll likely restart minocycline once the pelvic issue has resolved. 5.Morbid obesity If hCGquantitative is negative will restart phentermine but I would recommend patient avoid pregnancywhile on phentermine. Addendum by Yvonne Roach APRN on August 30, 2016 09:01:02 JAVA WEB ENGINEER
--- OUTSIDE RECORDS SUMMARY | 2017-03-07 11:37 | External Medical Summary | Referral Summary ---
:1975 [facility] Address [address] [place] [address] [place] [address] Care Team Providers Name Role Phone Haider Daly Primary Care Physician Encounter VC Date(s): 04/01/16 - 04/01/16 [facility] [place] [address] [place] Discharge Disposition: 01-Home or Self Care Attending Physician: Yvonne Roach APRN Admitting Physician: Yvonne Roach APRN Vital Signs No data available for this [...] Daily, # 30 g, 0 Refill(s), Pharmacy: [id number] Start Date: 07/16/15 Status: Ordered Results No data available for this section Immunizations Vaccine Date Refusal Reason tetanus/diphth/pertuss (Tdap) adult/adol 07/16/15 hepatitis B adult vaccine 04/01/16 hepatitis B adult vaccine 10/27/15 hepatitis B adult vaccine 09/25/15 influenza virus vaccine, live 07/16/15 Procedures Procedure Date Related Diagnosis Body Site Appendectomy L hand nerve repair plate L tibia fx Social History Social History Type Response Smoking Status Never smoker Assessment and Plan No data available for this section
--- OUTSIDE RECORDS SUMMARY | 2017-03-07 11:37 | External Medical Summary | Referral Summary ---
:1975 Author [facility] Address [address] [place] [address] [place] [address] Care Team Providers Name Role Phone Haider Daly Primary Care Physician Encounter VC Date(s): 07/06/16 - 07/06/16 [facility] [place] [address] [place] Discharge Diagnosis: Pain in lateral portion of left ankle Discharge Disposition: 01-Home or Self Care Attending Physician: Yvonne Roach APRN Admitting Physician: Yvonne Roach APRN Vital Signs Most recent to oldest [Reference Range]: 1 Temperature Tympanic [36.6-38.1 degC] 37 degC (07/06/16 1:17 PM) Peripheral Pulse Rate [60-100 bpm] 88 bpm (07/06/16 1:17 PM) Blood Pressure [90-140/60-90 mmHg] 128/78 mmHg (07/06/16 1:17 PM) Problem List Condition Effective Dates Status Health Status Informant Atypical squamous cells of Active undetermined significance (ASCUS) on Papanicolaou smear of cervix(Confirmed)1 Morbid obesity(Confirmed) Active patient 1HPV neg Allergies, Adverse Reactions, Alerts Substance Reaction Severity Status morphine Itching.... Active Medications Lidoderm 5% topical film See Instructions, 1 patches Topical q 12 hrs., # 1 boxes, 0 Refill(s), Pharmacy : [id number] Start Date: 07/06/16 Status: Orderedmelatonin 3 mg oral tablet 6 mg 2 tabs, Oral, Bedtime (once a day), as needed for insomnia, # 60 tabs, 0 Refill(s) Start Date: 07/16/15 Status: Orderednaproxen 500 mg oral tablet 500 mg 1 tabs, Oral, BID, X 14 days, # 28 tabs, 0 Refill(s), Pharmacy: [facility], 1 tabs Oral BID,x14 days Start Date: 07/06/16 Stop Date: 07/20/16 Status: Ordered Results No data available for [...] for scanning - later filling out charge. [id number] Comment: wrong order Procedures Procedure Date Related Diagnosis Body Site Appendectomy L hand nerve repair plate L tibia fx Social History Social History Type Response Smoking Status Never smoker Assessment and Plan Extracted from: Title: Office Visit Note-ankle pain Author: Yvonne Roach APRN Date: Assessment/Plan 1.Pain in lateral portion of left ankle X-ray of the ankle obtained and reviewed. No abnormalities noted. Lidoderm patches every 12 hours. May cut to fit area. Naproxen 500 mg one by mouth every 12 hours routinely for [address] scan of the anklefor further evaluation. Further plan of care based on CT scan. Ordered: CT Lower Extremity w/o Contrast Left Office Visit Level 4 Est [id number]
--- OUTSIDE RECORDS SUMMARY | 2017-03-07 11:37 | External Medical Summary | Referral Summary ---
:1975 Author Organization [facility] Address [address] [place] [address] [place] [id number] Care Team Providers Name Role Phone Haider Daly Primary Care Physician Encounter VC Date(s): 07/16/16 - 07/16/16 [facility] [place] [id number] Discharge Diagnosis: Atypical squamous cells of undetermined significance (ASCUS ) on Papanicolaou smear of cervix Discharge Diagnosis: Cervicitis Discharge Diagnosis: Morbid obesity Discharge Diagnosis: Pain in lateral portion of left ankle Discharge Diagnosis: Group B streptococcal infection Discharge Disposition: 01-Home or Self Care Attending Physician: Yvonne Roach APRN Admitting Physician: Yvonne Roach APRN Vital Signs Most recent to oldest [Reference Range]: 1 Temperature Tympanic [36.6-38.1 degC] 36.8 degC (07/16/16 8:31 AM) Peripheral Pulse Rate [60-100 bpm] 92 bpm (07/16/16 8:31 AM) Blood Pressure [90-140/60-90 mmHg] 128/86 mmHg (07/16/16 8:31 AM) Problem List Condition Effective Dates Status Health Status Informant Atypical squamous cells of Active undetermined significance (ASCUS) on Papanicolaou smear of cervix(Confirmed)1 Morbid obesity(Confirmed) Active 1HPV neg Allergies, Adverse Reactions, Alerts Substance Reaction Severity Status morphine Itching.... Active Medications doxycycline hyclate 100 mg oral capsule 100 mg 1 caps, Oral, BID, X 14 days, # 28 caps, 0 Refill(s), Pharmacy: [id number], 1 caps Oral BID,x14 days Start Date: 07/16/16 Stop Date: 07/30/16 Status: OrderedLidoderm 5% topical film See Instructions, 1 patches Topical q 12 hrs., # 1 boxes, 0 Refill(s), [facility]acy : [id number] Start Date: 07/06/16 Status: Orderedmelatonin 3 mg oral tablet 6 mg 2 tabs, Oral, Bedtime (once a day), as needed for insomnia, # 60 tabs, 0 Refill(s) Start Date: 07/16/15 Status: Orderednaproxen 500 mg oral tablet 500 mg 1 tabs, Oral, BID, X 30 days, # 60 tabs, 1 Refill(s), Pharmacy: [id number], 1 tabs Oral BID,x30 days Start Date: 07/16/16 Stop Date: 09/14/16 Status: Orderedphentermine 15 mg oral capsule 15 mg 1 caps, Oral, Daily, # 30 caps, 0 Refill(s) Start Date: 07/16/16 Status: Ordered Results No data available for [...] for scanning - later filling out charge. [id number] Comment: wrong order Procedures Procedure Date Related Diagnosis Body Site Appendectomy L hand nerve repair plate L tibia fx Social History Social History Type Response Smoking Status Never smoker Assessment and Plan Extracted from: Title: Office Visit Note-repeat Author: Yvonne Roach [employer] Date: 07/16/16 Pap/ankle Assessment/Plan 1.Atypical squamous cells of undetermined significance (ASCUS) on Papanicolaou smear of cervix Repeat Pap obtained today. We'll notify her of results and further plan of care. Ordered: Office Visit Level 4 Est 45275 2.Morbid obesity discussed weight lossin general, including dietary modifications, caloric restrictions,exercise. Recommend formal weight loss program such as Weight Watchers, Nutrisystem or other. Weight Watchers is available at [facility]. My fitness pal or WebMDare good sites to use. Medication options were discussed with the patient. Start phentermine 15 mg daily. Plan office visit in one month for recheck and then we'll plan3 months on 3 months off regimen. At the end of each script , please come to office for BP and wt check . Reviewed SE.Epocrates handout provided. Recommend patient monitor blood pressure outside the office. Goal blood pressures less than 140/90. If any side effects occur stop medication and notify the office. Discussed need to maintain at least 1500 dre per day. Inc exercise as tolerated. Would like patient to do at least 20-30 minutes more days of the week than not. OV required before restarting medication. Ordered: Office Visit Level 4 Est 92579 3.Group B streptococcal infection Vaginal culture obtained to check for clearance. Ordered: Genital Culture Office Visit Level 4 Est 01062 4.Pain in lateral portion of left ankle Continue naproxen twice a day. Recheck in one month . If not improving willconsider CT scan or referral to orthopedics. Ordered: Office Visit Level 4 Est 24826 5.Cervicitis [id number] mg twice a day for 2 weeks. Patient to let me know if pain increases. Ordered: Office Visit Level 4 Est 26593 Rosacea:Encourage good moisturization.May improve with doxycycline. He continues with doxycycline will switch to minocyclinelong-term.
[2017-03-07] MEDS ORDERED: NS 100 ML ONE (12:21)
[2017-03-07] MEDS ORDERED: SALINE FLUSH 10ml SYRINGE ONE (12:21)
[2017-03-07] MEDS ORDERED: IOHEXOL 300mg/ml 100ml INJECTION ONE (12:21)
[2017-03-07] MEDS ORDERED: HYOSCYAMINE 0.5 MG/ML INJECTION IV ONE (12:26)
--- NOTE | 2017-03-07 13:18 | CT Scan Report ---
EXAM: CT ABDOMEN AND PELVIS with IV CONTRAST HISTORY: lower abdominal pain, crampy severe COMPARISON: No prior studies available for comparison. TECHNIQUE: Contiguous thin section images were obtained to the abdomen and the transaxial plane following the intravenous administration of 98 cc of Omnipaque 300. Coronal and sagittal reconstruction imaging was utilized. Dose reduction techniques were implemented. The current CT scan was performed using radiation dose-reduction techniques. ABDOMEN LUNG BASES: Dependent atelectasis is seen at both lung bases posteriorly. LIVER: Mildly enlarged measuring 21 cm showing no discrete lesions. SPLEEN: Upper limits of normal size showing no discrete lesions. There is a small assess three spleen anterior to spleen. GALLBLADDER: Partially contracted showing minimal potential intraluminal calculi. PANCREAS: No focal enlargement, ductal dilatation or enhancing lesions. There is no peripancreatic inflammatory change. ADRENAL GLANDS: Not enlarged. KIDNEYS: Symmetrical size, contour and enhancement showing no evidence of hydronephrosis, nephrocalcinosis, hydroureter or ureterolith. VASCULAR: The abdominal aorta and IVC are normal caliber. LYMPH NODES: No abdominal pelvic adenopathy. STOMACH BOWEL LOOPS: There is a small hiatal hernia, there is a moderate amount of ingested material in the stomach. Proximal small bowel loops are normal caliber but there are more distal bowel loops likely representing mid to distal ileum in the right lower quadrant/right hemipelvis that are dilated, demonstrating a maximum transverse dimension of 3.2 cm. These dilated small bowel loops are associated air-fluid levels. There is no extrinsic mass effect. There is no evidence of bowel wall air or bowel wall thickening. The transition zone is suggested in the right lower quadrant where surgical clips are visualized. Colonic loops are normal caliber, there is prominent retained fecal material throughout the colon consistent with constipation. The appendix is surgically absent. URINARY BLADDER: No filling defects or wall thickening. UTERUS/OVARIES: The uterine anatomy is surgically absent. The ovarian anatomy appears retained bilaterally and appears to be of normal size. There is a 2.2 cm partially enhancing cyst on the left ovary likely representing a collapsing hemorrhagic cyst. There is a small amount of free fluid in the left hemipelvis adjacent to the left ovary. OSSEOUS STRUCTURES: Unremarkable. PERITONEAL CAVITY: There is small amount of free fluid in the dependent portion of the pelvis. No free air is seen in the abdomen or pelvis. ABDOMINAL WALL: Tiny fat-containing periumbilical hernia. IMPRESSION: 1. Findings are consistent with small bowel obstruction involving the mid to distal ileal loops with a transition zone suggested in the right hemipelvis where postsurgical changes are noted. The bowel obstruction may be due to adhesions. There is no extrinsic mass effect. 2. There is a small amount of free fluid in the left hemipelvis likely due to recently ruptured/collapsing hemorrhagic cyst on the left ovary as described. 3. The gallbladder is partially collapsed which may be the due to the recent meal. Minimal cholelithiasis is suspected. 4. Constipation. 5. Mild hepatomegaly. 6. Appendix and uterine anatomy are surgically absent. Report was called to Dr. Alcides Duran immediately following the initial review of this examination November 27, 2016 at 1:08 PM. .
[2017-03-07] MEDS: NS 1,000 ML IV SCH (14:01)
[2017-03-07] MEDS: ONDANSETRON 4 MG/2 ML INJECTION IV PRN (14:54)
--- NOTE | 2017-03-07 14:59 | General Surg History&Physical ---
- History of Present Illness Chief complaint: abd pain, nausea HPI: Per DR. Kern [facility] Obesity Menorrhagia Surgical History: Appendectomy with cystectomy from ovary 1991. Robotic PAMELA- Rudy Salping 12-01-2016 Dr. Hernandez. Plate and pin left leg fracture 2001 Family History: father - DM, colon cancer - Social History Smoking status: Never smoker Alcohol intake frequency: does not drink Household members: spouse Current occupational status: employed ([employer] at [employer]) Medications Home Medications Medication Instructions Recorded Confirmed Type Ibuprofen 400 mg PO Q4H PRN 03/07/17 03/07/17 History diphenhydrAMINE HCl [Benadryl] 25 mg PO Q4H PRN 03/07/17 03/07/17 History Allergies Allergy/AdvReac Type Severity Reaction Status Date / Time cefadroxil Allergy Mild HIVES Verified 03/07/17 10:50 morphine Allergy Mild HIVES Verified 03/07/17 10:50 Review of Systems 10-point ROS: negative except for HPI and the following: - Gastrointestinal Gastrointestinal: Present: other (see HPI) - Vital Signs Last Vital Signs Temp 97.7 F 03/07/17 10:40 Pulse 93 03/07/17 14:25 Resp 18 03/07/17 14:25 BP 126/59 03/07/17 14:25 Pulse Ox 98 03/07/17 14:25 - Laboratory Result Diagrams: 03/07/17 11:07 03/07/17 11:07 Hospital Course Summary Disclaimer: The visit summary below is not to be considered part of the above Progress Note.
[2017-03-07] MEDS: HYDROMORPHONE 2 MG/ML INJECTION IVP PRN ×3 (16:02→23:20)
--- NOTE | 2017-03-07 16:25 | History and Physical ---
FINDINGS Mrs. Poole is a 41-year-old female whom I was asked to see through the emergency room today as a result of her history and physical findings of abdominal pain in conjunction with an abnormal CT scan. Patient states that she has been feeling "normal"/well until earlier this morning. Patient states she awakened and felt just fine. Patient states that she had breakfast and went to work. Patient states she was "sitting at her desk" and began to notice a component of abdominal pain. This pain was somewhat "crampy" in nature and was described as being throughout her entire mid abdomen. Pain lasted for a short duration and then improved. Patient states that the pain, however, did reoccur and failed to improve. Pain was constant in nature. She would was nauseated but denied any emesis. The patient, however, did have an episode of emesis just prior to entering the room. Patient states that she was actually now "feeling a little better." Patient denied any recent change in her bowel habits. She denies any recent fever or chills. Patient denies pain similar to this in the past. The patient states that in November of this year she had undergone a robotic-assisted laparoscopic hysterectomy. Patient states that "surgery went well and she went home the following day." PAST MEDICAL HISTORY, PAST SURGICAL HISTORY, MEDICATIONS, ALLERGIES, SOCIAL HISTORY, FAMILY HISTORY, REVIEW OF SYSTEMS Performed by my nurse practitioner, Jesus Jama APRN. PHYSICAL EXAMINATION GENERAL: Mrs. Poole is a 41-year-old female who appeared to be somewhat uncomfortable but did not appear to be in acute distress. VITAL SIGNS: Temperature 97.7, pulse 93, respirations 18, blood pressure 126/59 , SAO2 98% on room air. HEENT: Normocephalic. Pupils are equally round and react to light and accommodation. CHEST: Clear to auscultation bilaterally. HEART: Regular rate and rhythm. Normal S1 and S2 without gallops, murmurs or clicks. ABDOMEN: Palpation of the abdomen did reveal tenderness within the right mid abdomen and right lower quadrant. Did have a slight component of some voluntary guarding with palpation within the right mid abdomen and right lower quadrant. There was, however, no evidence for involuntary guarding or rebound tenderness. Remaining abdomen was soft and completely nontender. EXTREMITIES: Without clubbing, cyanosis, or edema. NEURO: Cranial nerves II-XII grossly intact. Patient is without focal motor or sensory deficits. LABORATORY/RADIOGRAPHIC EVALUATION The patient had a CBC upon admission that was unremarkable. White count was 9.0. CMP was obtained in conjunction with a lipase level. This was found to be within normal limits. UA was obtained and found to be within normal limits. The patient had a CT scan of her abdomen and pelvis obtained through the ER. Dictated report was that of small bowel obstruction involving the [id number] ileal loops with a transition zone suggested in the right hemipelvis. Small amount of free fluid was noted. I did review the CT scan personally. One can see a fair amount of air within the transverse colon as well. The colon does appear somewhat dilated in conjunction with the small bowel dilatation. One can see a fair amount of fecal material within her stool. One would think that if she had complete small bowel obstruction there would be paucity of air within her colon. Otherwise, CT scan was without marked abnormalities. ASSESSMENT 41-year-old female with presentation of abdominal pain and radiographic evidence suggesting possible bowel obstruction. Patient without acute surgical abdomen at this time. PLAN At this point in time we will continue with current treatment with n.p.o. status , IV fluids, intravenous pain medications and antiemetics as needed, serial abdominal examinations. Will repeat radiographic evaluation tomorrow consisting of KUB and upright. Will repeat lab. If patient on plain films is with evidence for small bowel obstruction, will likely proceed with Gastrografin small bowel follow-through tomorrow. Given the fact that she has had only one episode of emesis we will hold off on placing NG at this time. If the patient would have ongoing nausea and vomiting we will place NG tube. Will continue to follow the patient closely. CÉSAR
[2017-03-07 16:47] VITALS: BMI 34.6
[2017-03-08] MEDS: NS 1,000 ML IV SCH ×2 (00:56→11:24)
[2017-03-08] MEDS: ONDANSETRON 4 MG/2 ML INJECTION IV PRN ×2 (03:18→09:37)
[2017-03-08] MEDS: METOCLOPRAMIDE 10mg/2ml INJECTION IVP PRN ×2 (04:20→13:37)
[2017-03-08] MEDS: HYDROMORPHONE 2 MG/ML INJECTION IVP PRN ×11 (04:30→19:26)
--- NOTE | 2017-03-08 07:50 | General Surgery Progress Note ---
Subjective Patient reports: still having pain (worst RLQ, mid and epigastric area. Epigastric pain worse today with palpation, other areas report by her has being the same level of pain as yesterday.), no flatus, no bowel movement, vomiting ( twice during the night total 600 ml, charted as "bile"), afebrile Narrative: Denies chills, sweats, dizziness. - Vital Signs Last Vital Signs Temp 97.8 F 03/07/17 23:07 Pulse 57 L 03/07/17 23:07 Resp 16 03/07/17 23:07 BP 112/65 03/07/17 23:07 Pulse Ox 95 03/07/17 23:07 - Laboratory Result Diagrams: 03/08/17 04:14 03/07/17 11:07 - Radiology KUB upright - Abnormal Exam General: mild distress (concerned about general condition ) Abdominal: hypoactive bowel sounds, tender (RLQ, mid and epigastric areas on palpation), voluntary guarding (epigastric and RLQ) - Normal Exam General: no acute distress Cardiovascular: regular rhythm, regular rate Respiratory: clear all zhu Psychiatric: normal affect Neurological: CN 2-12 grossly intact Assessment and Plan (1) Acute epigastric pain Current Visit: Yes Status: Acute (2) RLQ abdominal pain Current Visit: Yes Status: Acute (3) Epigastric abdominal pain Current Visit: Yes Status: Acute (4) Nausea & vomiting Current Visit: Yes Status: Acute Qualifiers: Vomiting type: bilious vomiting Qualified Code(s): R11.14 - Bilious vomiting (5) Leukocytosis, unspecified Current Visit: Yes Status: Acute Qualifiers: Leukocytosis type: unspecified Qualified Code(s): D72.829 - Elevated white blood cell count, unspecified Plan: Overall without improvement in symptoms, RLQ, mid and epigastric pain with nausea and vomiting x2 during the night of 600 total ml. WBC 15.5 today (9.0 on admission yesterday) KUB upright shows quite a bit of stool, no air fluid levels or stair-stepping. Will proceed with SBFT today Hospital Course Summary Disclaimer: The visit summary below is not to be considered part of the above Progress Note. Sepsis Assessment - Evaluation Sepsis screening result: No Definite Risk
[2017-03-08] MEDS ORDERED: DIATRIZOATE MEGLUMINE/SOD. (66%/10%) 120ml SOLN ONE (08:38)
--- NOTE | 2017-03-08 09:52 | XRay Report ---
Indication: ileus vs small bowel obstruction PROCEDURE: XR KUB w upright: Encounter: Initial Comparison: CT abdomen and pelvis dated March 07, 2017 Findings: No free air. Lung bases are grossly clear. Air-fluid level seen in the lower abdominal small bowel. Gas is present distally to the level of the rectum. No abnormal dilated gas-filled small bowel appreciated although the bowel on the recent CT scan was predominantly fluid-filled. Impression: Radiographic findings compatible with a partial small bowel obstruction. .
--- NOTE | 2017-03-08 09:57 | Progress Note ---
DATE 03/08/2017 FINDINGS Eryn this morning states that she is not feeling any better. She states that her pain is about the same. She did have two episodes of emesis apparently through the evening. OBJECTIVE VITALS: Afebrile. Normotensive. Current vitals include temperature 97.7, pulse 55, respirations 14, blood pressure 106/64, SaO2 94% on room air. The patient has not had any element of tachycardia.. CHEST: Clear to auscultation bilaterally. HEART: Regular rate and rhythm. Normal S1 and S2 without gallops, murmurs, or clicks. ABDOMEN: Palpation of the abdomen still reveals tenderness within the right mid abdomen. She does have a slight component of some voluntary guarding. No evidence for involuntary guarding or rebound tenderness. LABORATORY/RADIOGRAPHIC EVALUATION The patient had a CBC today and she does have increasing leukocytosis with a white count of 15,000. Left shift with 78% neutrophils. KUB and upright was obtained today. Dictated report is pending. One can see a fair amount of stool within her right lower quadrant of her abdomen. Radiographically it does not appear to have "stair-stepping" air-fluid levels or markedly dilated small bowel. One can see some minimal small bowel distention. ASSESSMENT 41-year-old female with abdominal discomfort/pain, abnormal CT scan revealing questionable small bowel obstruction. PLAN Gastrografin small bowel follow-through. Will go ahead and obtain a Gastrografin small bowel follow-through today. If contrast does progress through her GI tract, will continue to follow from a clinical standpoint. If on the other hand, the contrast does not progress and she continues to have ongoing abdominal pain, will then proceed with surgical intervention. The above plan/algorithm was discussed with the patient. The patient understands and agrees. CÉSAR
[2017-03-08] MEDS ORDERED: ONDANSETRON 4 MG/2 ML INJECTION IVP PRN (10:15)
[2017-03-08] MEDS: SALINE FLUSH 10ml SYRINGE IVF PRN ×2 (11:30→21:46)
--- NOTE | 2017-03-08 16:19 | Anesthesia Preoperative Report ---
Anesthesia Preoperative Record - Date and Time Date: 03/08/17 Preoperative Diagnosis: Sm Bowel Obstruction NPO Since Date: 03/07/17 NPO Since Time: 16:15 Allergies/Adverse Reactions: Allergies Allergy/AdvReac Type Severity Reaction Status Date / Time cefadroxil Allergy Mild HIVES Verified 03/07/17 10:50 morphine Allergy Mild HIVES Verified 03/07/17 10:50 - Vital Signs Vital Signs: Temperature 97.3 F 03/08/17 15:27 Pulse Rate 73 03/08/17 15:27 Respiratory Rate 18 03/08/17 15:27 Blood Pressure 130/70 03/08/17 15:27 Pulse Oximetry 94 03/08/17 15:27 - Medications Inpatient Medications: Current Medications Hydromorphone HCl (Dilaudid) 0.5 - 1 mg IVP Q1H PRN PRN Reason: Pain Last Admin: 03/08/17 15:44 Dose: 1 mg Sodium Chloride (Normal Saline) 1,000 mls @ 100 mls/hr IV .Q10H MORRIS Last Admin: 03/08/17 11:24 Dose: 100 mls/hr Metoclopramide HCl (Reglan) 10 mg IVP Q6H PRN Last Admin: 03/08/17 13:37 Dose: 10 mg Ondansetron HCl (Zofran) 4 mg IVP Q6H PRN PRN Reason: Nausea &/or vomiting Sodium Chloride (Iv Flush) 10 - 80 ml IVF PRN PRN PRN Reason: Flushing Last Admin: 03/08/17 11:30 Dose: 20 ml Home Medications: Home Medications Medication Instructions Recorded Confirmed Type Ibuprofen 400 mg PO Q4H PRN 03/07/17 03/07/17 History diphenhydrAMINE HCl [Benadryl] 25 mg PO Q4H PRN 03/07/17 03/07/17 History Is Patient on Beta Kiley?: No - Medical History Gastrointestional: Reports: Morbid Obesity (obese), Other - Surgical History GI Surgery/Treatments: Reports: Appendectomy Reproductive Surgery/Treatment: Reports: Hysterectomy Anesthesia Reactions: None Hx Family Anesthesia Reaction: No History of Motion Sickness: No - Social History Smoking Status: Never smoker Hx Chewing Tobacco Use: No Second Hand Exposure: No Substance Use Type: does not use Alcohol Intake Frequency: does not drink - Physical Exam Respiratory Exam: Present: lungs clear Cardiovascular Exam: Present: regular rate and rhythm - Airway Assessment Mallampati Score: II TMD: 3 Fingerbreadths Neck Extension: fair Overall Assessment: no airway concerns - ASA ASA Score: 2, E - Plan Anesthesia: General Inhalation Gases - Discussion Discussion: Discussed risks/options/alternatives of anesthesia and questions answered. Patient consents. Nursing pain assessment noted. Attestation Statement: Prior to the delivery of any anesthetic medication, I examined the patient, developed the plan, obtained the patient's consent and discussed the risk and benefits of the procedure with the patient/guardian. - Additional Information Seen by Anesthesia: Yes
[2017-03-08] MEDS ORDERED: LIDOCAINE 2% JELLY Tube 30ml TOP ONE (16:27)
--- NOTE | 2017-03-08 16:37 | XRay Report ---
Indication: possible SBO, nausea/vomiting PROCEDURE: XR small bowel follow through: Encounter: Initial Comparison: KUB from earlier today and CT abdomen pelvis from yesterday Findings: Water-soluble contrast was administered orally followed by serial abdominal radiographs. Contrast traverses mildly dilated small bowel loops. There is prolonged stasis in the mid to distal small bowel last for several hours. Bowel loops are dilated up to 3.5 cm in diameter, similar to the comparison CT. There are areas of focal narrowing in the ileum corresponding to areas of narrowing or adhesion seen on the CT study. Contrast did traverse into the cecum at the 6 1/2 hour time point. Colonic contrast is increasingly seen on the 7 hour and 20 minute image. On this image there is also a new nasogastric tube which projects over the fundus of the stomach in appropriate position. Impression: 1. Delayed intestinal transit time of 6 1/2 hours suggesting a partial small bowel obstruction. 2. Nasogastric tube placed at the end of the study appears appropriately positioned. .
[2017-03-08] MEDS ORDERED: ERTAPENEM 1 G in NS 100 ML IV SCH (17:00)
[2017-03-08] MEDS ORDERED: SUCCINYLCHOLINE 20mg/mL 10mL INJECTION ONE (17:14)
[2017-03-08] MEDS ORDERED: FentaNYL 100 MCG/2 ML INJECTION ONE (17:14)
[2017-03-08] MEDS ORDERED: PROPOFOL 20 ML ONE (17:14)
[2017-03-08] MEDS ORDERED: ROCURONIUM 50 MG/5 ML INJECTION IVP ONE (17:14)
[2017-03-08] MEDS ORDERED: BUPIVACAINE 0.25%/EPI 1:200,000 30ml SDV ONE (17:26)
[2017-03-08] MEDS: LR 1,000 ML IV SCH ×2 (17:30→18:27)
[2017-03-08] MEDS ORDERED: DEXAMETHASONE 4 MG/ML INJECTION ONE (17:51)
[2017-03-08] MEDS ORDERED: ONDANSETRON 4 MG/2 ML INJECTION ONE (17:51)
[2017-03-08] MEDS ORDERED: HYDROMORPHONE 2 MG/ML INJECTION ONE (18:02)
[2017-03-08] MEDS ORDERED: SUGAMMADEX 200mg/2ml INJECTION IVP ONE (18:05)
--- NOTE | 2017-03-08 19:08 | General Surgery Procedure Note ---
Date of Procedure: 03/08/17 Surgeon: Erlin Stave And Bolt Equalizer: Jesus Jama APRN Postoperative Diagnosis: Small bowel obstruction secondary to adhesive band Procedure: Diagnostic laparoscopy with conversion to open exploratory laparotomy and lysis of adhesion Estimated Blood Loss: See Anesthesia Record. Pathology: none sent
[2017-03-08] MEDS ORDERED: HYDROMORPHONE PCA 30mg/30ml VIAL IV PRN (19:11)
[2017-03-08] MEDS ORDERED: HYDROCODONE/APAP 5mg/325mg TABLET PO PRN (19:11)
--- NOTE | 2017-03-08 19:25 | Anesthesia Postoperative Note ---
- Date and Time Date: 03/08/17 Time: 19:23 - Status Patient Participated in Evaluation: Patient Participated in Person Vital Signs: Temperature 98.8 F 03/08/17 18:55 Pulse Rate 97 03/08/17 19:20 Respiratory Rate 12 03/08/17 19:15 Blood Pressure 118/69 03/08/17 19:20 Pulse Oximetry 96 03/08/17 19:20 Respiratory Function: Airway Patent, Regular Respirations Cardiovascular Function: Regular Pulse Mental Status: Alert and Oriented Pain Intensity: 6 (meds given for pain control) Hydration: IV Infusing Complications During Recover: None Apparent - Follow-Up Instructions Instructions: Per Surgeon
[2017-03-08] MEDS: D5-1/2NS with KCL 20mEq 1,000 ML IV SCH (19:35)
--- NOTE | 2017-03-08 20:17 | Progress Note ---
DATE OF SERVICE 03/08/2017 FINDINGS Patient this evening states that she is having increasing pain and discomfort. We did perform a Gastrografin small bowel follow-through upon the patient today. Radiology had just contacted me stating that the contrast eventually did end up within her cecum. Apparently nursing staff had contacted my nurse practitioner stating that the patient was having increasing pain, nausea and some vomiting. NG was placed. Nursing staff states that they obtained about 1000 mL of fluid after placing the NG. EXAM VITAL SIGNS: Temperature 97.3, pulse 73, respirations 18, blood pressure 130/70 , SAO2 94% on room air. CHEST: Clear to auscultation bilaterally. HEART: Regular rate and rhythm. Normal S1 and S2 without gallops, murmurs or clicks. ABDOMEN: Patient continues to have persistent pain within her right lower quadrant and right midabdomen. I would say that she has some increasing tenderness noted on exam in comparison to this morning. She still is without maritza peritoneal signs such as rebound tenderness or involuntary guarding. She does have, however, increasing guarding with palpation in the right mid abdomen. LABORATORY/RADIOGRAPHIC EVALUATION I did review her x-rays personally. I also discussed her films with the radiologist. At six hours the patient still had a fair amount of contrast within her stomach. One can see a fair amount of dilatation of her small bowel at six hours throughout the left abdomen. At seven hours one can now see some contrast within the cecal region. There continues to be fairly significant small bowel distention present. One could also still see some contrast in the stomach at seven and a half hours. ASSESSMENT 41-year-old female with probable high-grade small-bowel obstruction. PLAN Given her increasing abdominal tenderness, the fact that the contrast persisted within her stomach at seven and a half hours and the degree of dilatation noted on her small bowel follow-through, it was my recommendation that we should proceed with surgical intervention despite the fact that contrast did progress into her cecal region. It is my recommendation at this point in time that we proceed with a diagnostic laparoscopy, possible exploratory laparotomy. I did discuss with the patient and her what this procedure would entail and its associated risks which included but was not inclusive of bleeding and/or infection. I also informed the patient and her that there is a chance that a bowel resection may be required pending the intraoperative findings. Patient and understood and wished to proceed with surgical intervention , as stated above. CÉSAR
[2017-03-08] MEDS: KETOROLAC 30 MG/ML INJECTION IVP PRN (21:44)
[2017-03-08] MEDS: SORE THROAT SPRAY 20ml PO PRN (23:53)
[2017-03-09] MEDS: D5-1/2NS with KCL 20mEq 1,000 ML IV SCH ×3 (03:57→23:38)
[2017-03-09] MEDS: SORE THROAT SPRAY 20ml PO PRN ×8 (04:03→23:38)
[2017-03-09] MEDS: KETOROLAC 30 MG/ML INJECTION IVP PRN ×2 (06:00→13:08)
[2017-03-09] MEDS: SALINE FLUSH 10ml SYRINGE IVF PRN (06:01)
[2017-03-09] MEDS: PANTOPRAZOLE 40 MG INJECTION IVP SCH (09:08)
[2017-03-09] MEDS: ENOXAPARIN 40 MG/0.4 ML INJECTION SQ SCH (09:08)
--- NOTE | 2017-03-09 09:23 | Operative Note ---
DATE 03/08/2017 SURGEON Umer Kern MD [employer] Jesus Jama APRN PREOPERATIVE DIAGNOSIS High-grade small-bowel obstruction. POSTOPERATIVE DIAGNOSIS High-grade small-bowel obstruction secondary to adhesive band. PROCEDURE Attempted diagnostic laparoscopy with conversion to exploratory laparotomy and lysis of adhesions. ANESTHESIA General endotracheal. EBL AND FLUIDS Please see chart. BRIEF HISTORY/INDICATIONS Mrs. Poole is a 41-year-old female whom I was asked to see yesterday as a result of her history and physical findings of abdominal pain in conjunction with an abnormal CT scan revealing evidence for a possible bowel obstruction. The patient was admitted to the hospital. She was without an acute surgical abdomen. Patient was observed last evening. This morning she continued to have a component of abdominal discomfort and a Gastrografin small bowel follow- through was obtained to rule in or rule out a small bowel obstruction with more certainty. Contrast was quite slow to progress through her GI tract. The patient began to experience increasing abdominal pain. Contrast did progress through her small bowel and into her cecum, but it did take roughly 7 hours for this to be accomplished. Furthermore, on her small bowel follow-through, the patient was found to have significantly dilated small bowel. It was felt the patient was suffering from a high-grade small bowel obstruction and clinically she did appear to be deteriorating and therefore it was my recommendation we proceed with surgical intervention. For completeness please refer to notes included in the patient's chart. FINDINGS Upon laparoscopy, one could see a considerable amount of fluid within the peritoneal cavity. Initially this appeared to be more bilious in nature. I therefore elected to proceed with conversion to an open procedure. Upon laparotomy, the patient was found to have an adhesive band encompassing a loop of mid to distal ileum. This loop of bowel that was incorporated behind this adhesive band was without evidence for necrosis. There did appear to be a component of some congestion and the bowel was slightly more dark in its appearance than the surrounding small bowel. Adhesive band was lysed and the bowel then became normal in its appearance. The remaining small bowel was carefully inspected from the ligament of Treitz to the terminal ileum. No additional abnormalities were noted. Colon had a fair amount of stool within it but was without palpable abnormalities. Liver edge was smooth without nodularities. The gallbladder was normal. One could see some adhesions between the omentum and the vaginal cuff from her prior hysterectomy. No additional abnormalities were noted within the peritoneal cavity. DESCRIPTION OF PROCEDURE After informed consent was obtained, the patient was brought to the operative suite and placed on the table in supine fashion. The abdomen was then prepped and draped in sterile fashion. Formal time-out was then completed. Next a 2 cm incision was made approximately 2 cm above the level of the umbilicus. Dissection was carried down to deep subcuticular tissues. Fascia was then identified. Fascia was then grasped with two Farhan clamps, retracted anteriorly. A 1 cm incision was then made between the two Farhan clamps. A hemostat was then introduced into the fascial incision into the peritoneal cavity and gently spread. A U-stitch was then placed through the fascial opening with 0 Vicryl. A 12 mm Tim port was then placed in the peritoneal cavity and pneumoperitoneum was established to a patient pressure of 15 mmHg utilizing carbon dioxide. Abdominal cavity was explored via laparoscope. As stated above, the patient was found have a considerable amount of free fluid within her peritoneal cavity. This did appear more bilious in nature via the laparoscope. The patient was found to have some adhesions between her anterior abdominal wall and her underlying omentum within the right midabdomen. Small bowel was found to be significantly dilated. I did not see any evidence for an obvious adhesive band involving the anterior abdomen. As a result of the considerable amount of free fluid, which did appear fairly bilious in nature, I elected to proceed with conversion to open procedure. Laparoscope and port was removed. A standard midline incision was then made from just above the pubic symphysis up to and into the epigastric region. Underlying subcutaneous tissues , fascia and peritoneum was then opened to the extent of the incision. Codman retractor was then placed for exposure. Abdominal cavity was explored. Findings were as noted above. Liver edge was smooth without nodularities. Gallbladder was without palpable abnormalities. Colon had a fair amount of stool within it but no discrete palpable abnormalities were noted within the colon. There was some omentum that was adherent along the vaginal cuff from her prior hysterectomy. This adhesion was taken down with blunt dissection. The tip of the omentum then began to bleed. A right angle clamp was placed upon this location and the omentum was ligated with 0 Vicryl tie resulting in hemostasis. Attention then focused to the right lower quadrant of her abdomen. One could see an adhesive band with a segment of ileum behind this tight adhesive band. There was perhaps 12-15 cm of ileum that had been incorporated behind this adhesive band. Bowel proximal to this was indeed dilated in nature. There was an obvious transition point present at this location. Small bowel beyond this was of normal caliber. As stated above, there was no evidence for necrosis of this segment of bowel although there did appear to be a component of some venous congestion and the bowel wall was somewhat darker in nature in comparison to the surrounding small bowel. Adhesive band was then divided with Metzenbaum scissors allowing delivery of the bowel up into the abdominal cavity. The point where the adhesive band covered the bowel was carefully inspected. Again, there was no evidence for necrosis at this site. Small bowel was then carefully inspected from the ligament of Treitz to the terminal ileum. No additional abnormalities were noted. Small bowel contents were then advanced in a retrograde fashion back into the stomach with the NG placed to suction. This did result in decompression of the distended small bowel. Once a formal abdominal exploration had been completed, attention was then directed towards closure. Instrument, sponge and needle counts were performed and found to be correct. The segment of small bowel which had been incorporated in behind this adhesive band was again inspected and found to be completely normal in its appearance at this time. Next, fascia was then closed in a running fashion with #1 PDS suture. Skin was then closed with selma. The patient is in the process of awakening from her anesthetic and will be sent back to recovery room once deemed in stable condition. Additionally, it should be noted that Jesus Jama APRN, was present throughout the entire case and played a pivotal role in providing assistance and exposure during the course of the procedure. CÉSAR
--- NOTE | 2017-03-10 07:55 | General Surgery Progress Note ---
Subjective Narrative: 03-09-2017 Patient seen in CCU room 3 in both morning and afternoon. She is most uncomfortable with the NG tube. While at rest she is without abd pain, does have incisional pain with activity. She walked the length of CCU by my 2nd visit in the afternoon. No flatus, BM. Albert nausea, chest pain, SOA. - Vital Signs Last Vital Signs Temp 96.4 F L 03/10/17 04:00 Pulse 88 03/10/17 04:00 Resp 16 03/10/17 04:00 BP 125/70 03/10/17 04:00 Pulse Ox 95 03/10/17 04:00 - Laboratory Result Diagrams: 03/10/17 04:04 03/10/17 04:04 - Normal Exam General: alert, oriented, no acute distress Respiratory: equal bilaterally (but diminished bases,is using IS as directed.), no labored breathing Abdominal: appropriately tender (midline incision.), incision(s) (dressing in tact) Assessment and Plan (1) Small bowel obstruction Current Visit: Yes Status: Resolved (2) Acute epigastric pain Current Visit: Yes Status: Resolved (3) RLQ abdominal pain Current Visit: Yes Status: Resolved (4) Nausea & vomiting Current Visit: Yes Status: Acute Qualifiers: Vomiting type: bilious vomiting Qualified Code(s): R11.14 - Bilious vomiting (5) Leukocytosis, unspecified Current Visit: Yes Status: Acute Qualifiers: Leukocytosis type: unspecified Qualified Code(s): D72.829 - Elevated white blood cell count, unspecified Plan: POD #1 Urine output adequate after NS fluid bolus. Will reposition NG so it is not putting pressure on the superior corner of the nare. She is stable and transferred to surgical unit. Will continue to monitor. Hospital Course Summary Disclaimer: The visit summary below is not to be considered part of the above Progress Note. Sepsis Assessment - Evaluation Sepsis screening result: No Definite Risk
[2017-03-10] MEDS: D5-1/2NS with KCL 20mEq 1,000 ML IV SCH ×2 (08:04→16:06)
[2017-03-10] MEDS: PANTOPRAZOLE 40 MG INJECTION IVP SCH (08:04)
[2017-03-10] MEDS: KETOROLAC 30 MG/ML INJECTION IVP PRN ×2 (08:06→14:49)
[2017-03-10] MEDS: ENOXAPARIN 40 MG/0.4 ML INJECTION SQ SCH (08:10)
[2017-03-10] MEDS: SORE THROAT SPRAY 20ml PO PRN (08:13)
--- NOTE | 2017-03-10 11:20 | General Surgery Progress Note ---
Subjective Patient reports: feels better, voiding w/o difficulty, no flatus (but is feeling "rumblings" and thinks she may pass flatus soon), afebrile Narrative: Ambulating frequently and without difficulty. The NG is still her most annoying pain. She uses the YOUTH PASTOR minimally, once since shift change this am. - Vital Signs Last Vital Signs Temp 98.1 F 03/10/17 08:00 Pulse 64 03/10/17 08:00 Resp 14 03/10/17 08:00 BP 150/89 H 03/10/17 08:00 Pulse Ox 94 03/10/17 08:00 - Laboratory Result Diagrams: 03/10/17 04:04 03/10/17 04:04 - Abnormal Exam Abdominal: hypoactive bowel sounds - Normal Exam General: alert, oriented, no acute distress Cardiovascular: regular rhythm, regular rate Respiratory: clear all zhu Abdominal: appropriately tender (midline incision), incision(s) (Dressings in tact) Neurological: CN 2-12 grossly intact Assessment and Plan (1) Small bowel obstruction Current Visit: Yes Status: Resolved (2) Acute epigastric pain Current Visit: Yes Status: Resolved (3) RLQ abdominal pain Current Visit: Yes Status: Resolved (4) Nausea & vomiting Current Visit: Yes Status: Resolved Qualifiers: Vomiting type: bilious vomiting Qualified Code(s): R11.14 - Bilious vomiting (5) Leukocytosis, unspecified Current Visit: Yes Status: Acute Qualifiers: Leukocytosis type: unspecified Qualified Code(s): D72.829 - Elevated white blood cell count, unspecified Plan: POD#2 She is doing well, still 700+ ml out of NG Q12 hours, will clamp NG for a few hours, start clear liquids, then if tolerates,will DC NG and start full liquids. Once full liquids are started she can start [place] and we can DC the YOUTH PASTOR. Continue to monitor daily labs, WBC still 13.3 Hospital Course Summary Disclaimer: The visit summary below is not to be considered part of the above Progress Note. Hospital Course: 03/09/2017 POD #1 Urine output adequate after NS fluid bolus. Will reposition NG so it is not putting pressure on the superior corner of the nare. She is stable and transferred to surgical unit. Will continue to monitor. 03/10/17 11:25 POD#2 She is doing well, still 700+ ml out of NG Q12 hours, will clamp NG for a few hours, start clear liquids, then if tolerates,will DC NG and start full liquids. Once full liquids are started she can start [place] and we can DC the YOUTH PASTOR. [place] DC'd voiding without difficulty. Continue to monitor daily labs, WBC still 13.3 03/10/17 11:26 Sepsis Assessment - Evaluation Sepsis screening result: No Definite Risk
--- NOTE | 2017-03-10 20:19 | Progress Note ---
DATE OF SERVICE 03/10/2017 FINDINGS Eryn was in good spirits earlier today when she was seen on rounds. She was requesting that her NG be removed. States that her abdominal pain has markedly improved compared to what she had been experiencing preoperatively. EXAM VITAL SIGNS: Afebrile, normotensive. Please refer to EMR. CHEST: Clear to auscultation bilaterally. HEART: Regular rate and rhythm. Normal S1 and S2 without gallops, murmurs or clicks. ABDOMEN: Palpation of the abdomen reveals significantly less discomfort than noted preoperatively. She does have some minimal incisional tenderness but there is no element of guarding or rebound. LABORATORY/RADIOGRAPHIC EVALUATION The patient had a CBC today as well as a BMP. No marked abnormalities were noted. White count has decreased from 20,000 to 13,000. Hemoglobin has decreased slightly to 11.9. ASSESSMENT 41-year-old female status post exploratory laparotomy secondary to small bowel obstruction from adhesive band. Patient doing well. PLAN NG was discontinued today. Will begin the patient on some clear liquids. If the patient tolerates clear liquids, will increase to full liquids tomorrow. I am pleased with the patient's progress at this time. MEGHAND
[2017-03-11] MEDS: D5-1/2NS with KCL 20mEq 1,000 ML IV SCH ×3 (00:36→12:46)
[2017-03-11] MEDS: ENOXAPARIN 40 MG/0.4 ML INJECTION SQ SCH (08:36)
[2017-03-11] MEDS: PANTOPRAZOLE 40 MG INJECTION IVP SCH (09:36)
[2017-03-11] MEDS: SALINE FLUSH 10ml SYRINGE IVF PRN ×2 (09:36→21:19)
[2017-03-11] MEDS ORDERED: Bisacodyl EC TAB 5 MG TABLET PO ONE ×2 (11:37→16:56)
--- NOTE | 2017-03-11 11:52 | General Surgery Progress Note ---
Subjective Patient reports: feels better, tolerating a regular diet, flatus, no bowel movement, afebrile - Vital Signs Last Vital Signs Temp 98.2 F 03/11/17 09:38 Pulse 82 03/11/17 09:38 Resp 14 03/11/17 09:38 BP 121/68 03/11/17 07:44 Pulse Ox 97 03/11/17 10:42 - Laboratory Result Diagrams: 03/11/17 04:27 03/11/17 04:27 - Normal Exam Respiratory: no labored breathing Abdominal: soft, appropriately tender (midline incision), incision(s) ( dressings removed, selma in tact, no erythema, ecchymmosis, drainage.) Psychiatric: normal affect Assessment and Plan (1) Small bowel obstruction Current Visit: Yes Status: Resolved (2) Acute epigastric pain Current Visit: Yes Status: Resolved (3) RLQ abdominal pain Current Visit: Yes Status: Resolved (4) Nausea & vomiting Current Visit: Yes Status: Resolved Qualifiers: Vomiting type: bilious vomiting Qualified Code(s): R11.14 - Bilious vomiting (5) Leukocytosis, unspecified Current Visit: Yes Status: Resolved Qualifiers: Leukocytosis type: unspecified Qualified Code(s): D72.829 - Elevated white blood cell count, unspecified Plan: doing well, will advance to regular diet for noon. Passing flatus, no nausea. WBC back to normal Dulcolax tabs now. DC SLIP TENDER and tele. anticipate discharge this evening. Hospital Course Summary Disclaimer: The visit summary below is not to be considered part of the above Progress Note. Hospital Course: 03/09/2017 POD #1 Urine output adequate after NS fluid bolus. Will reposition NG so it is not putting pressure on the superior corner of the nare. She is stable and transferred to surgical unit. Will continue to monitor. 03/10/17 11:25 POD#2 She is doing well, still 700+ ml out of NG Q12 hours, will clamp NG for a few hours, start clear liquids, then if tolerates,will DC NG and start full liquids. Once full liquids are started she can start [place] and we can DC the SLIP TENDER. [place] DC'd voiding without difficulty. Continue to monitor daily labs, WBC still 13.3 03/11/17 11:52 doing well, will advance to regular diet for noon. Passing flatus, no nausea. WBC back to normal Dulcolax tabs now. DC SLIP TENDER and tele. anticipate discharge this evening. Sepsis Assessment - Evaluation Sepsis screening result: No Definite Risk
--- NOTE | 2017-03-11 11:58 | Discharge Instructions ---
Discharge Plan - Med Rec/Dispo Referrals/Follow Up: Umer Kern MD [Physician] - 03/23/17 4:00 pm Prescriptions: New Polyethylene Glycol 3350 [Miralax] 17 gm PO DAILY PRN #5 [email or web address] PRN Reason: Constipation RX: Hydrocodone/APAP 5/325 [[place] 5/325] 1 - 2 tab PO Q5H PRN #30 tab PRN Reason: Pain Continue RX: Ibuprofen 400 mg PO Q4H PRN PRN Reason: Pain RX: diphenhydrAMINE HCl [Benadryl] 25 mg PO Q4H PRN PRN Reason: Prn Orders Discharge Instructions/Outpatient Orders: Final Provider Discharge Instructions Location: Determined By Patient - Disposition 01 Discharged Home, Self-Care
--- NOTE | 2017-03-11 17:17 | Progress Note ---
DATE OF SERVICE 03/11/2017 FINDINGS Eryn today was seen earlier on rounds. She denied any element of nausea. Stats she is having minimal incisional tenderness. Has been without BM. EXAM VITAL SIGNS: Afebrile, normotensive. ABDOMEN: Soft, nontender. Incision is clean, dry and intact. LABORATORY/RADIOGRAPHIC EVALUATION The patient had a CBC and BMP today that were unremarkable. ASSESSMENT 41-year-old female status post exploratory laparotomy with lysis of adhesions secondary to small bowel obstruction. Patient doing well. PLAN Will tentatively plan on discharge for tomorrow. Will give oral cathartic. Advance diet as tolerated. MTDD
[2017-03-12 04:40] VITALS: RESP 16
[2017-03-12] MEDS: SALINE FLUSH 10ml SYRINGE IVF PRN (05:43)
[2017-03-12 06:42] VITALS: O2SAT 92
[2017-03-12] MEDS: PANTOPRAZOLE 40 MG INJECTION IVP SCH (09:16)
[2017-03-12] MEDS: ENOXAPARIN 40 MG/0.4 ML INJECTION SQ SCH (09:16)
[2017-03-12 11:00] VITALS: BP 124/77; PULSE 83; TEMP 98.5
--- NOTE | 2017-03-15 09:26 | Discharge Summary ---
Discharge Information Date of admission: 03/08/17 15:41 Attending Physician: Umer Kern MD Primary care physician: Haider Daly MD - Procedures Procedures: DATE 03/08/2017 SURGEON Umer Kern MD WELL DRILLER Jesus Jama APRN PREOPERATIVE DIAGNOSIS High-grade small-bowel obstruction. POSTOPERATIVE DIAGNOSIS High-grade small-bowel obstruction secondary to adhesive band. PROCEDURE Attempted diagnostic laparoscopy with conversion to exploratory laparotomy and lysis of adhesions. - Laboratory Labs: 03/12/17 05:06 03/12/17 05:06 - Radiology Radiology: 03/07/2017 CT abd/pelvis IMPRESSION: 1. Findings are consistent with small bowel obstruction involving the mid to distal ileal loops with a transition zone suggested in the right hemipelvis where postsurgical changes are noted. The bowel obstruction may be due to adhesions. There is no extrinsic mass effect. 2. There is a small amount of free fluid in the left hemipelvis likely due to recently ruptured/collapsing hemorrhagic cyst on the left ovary as described. 3. The gallbladder is partially collapsed which may be the due to the recent meal. Minimal cholelithiasis is suspected. 4. Constipation. 5. Mild hepatomegaly. 6. Appendix and uterine anatomy are surgically absent. 03/08/2017 KUB Findings: No free air. Lung bases are grossly clear. Air-fluid level seen in the lower abdominal small bowel. Gas is present distally to the level of the rectum. No abnormal dilated gas-filled small bowel appreciated although the bowel on the recent CT scan was predominantly fluid-filled. Impression: Radiographic findings compatible with a partial small bowel obstruction. 03/08/2017 Small Bowel Series Impression: 1. Delayed intestinal transit time of 6 1/2 hours suggesting a partial small bowel obstruction. 2. Nasogastric tube placed at the end of the study appears appropriately positioned. - History of Present Illness Chief complaint: abd pain, nausea HPI: BRIEF HISTORY/INDICATIONS Mrs. Poole is a 41-year-old female whom I was asked to see yesterday as a result of her history and physical findings of abdominal pain in conjunction with an abnormal CT scan revealing evidence for a possible bowel obstruction. The patient was admitted to the hospital. She was without an acute surgical abdomen. Patient was observed last evening. This morning she continued to have a component of abdominal discomfort and a Gastrografin small bowel follow- through was obtained to rule in or rule out a small bowel obstruction with more certainty. Contrast was quite slow to progress through her GI tract. The patient began to experience increasing abdominal pain. Contrast did progress through her small bowel and into her cecum, but it did take roughly 7 hours for this to be accomplished. Furthermore, on her small bowel follow-through, the patient was found to have significantly dilated small bowel. It was felt the patient was suffering from a high-grade small bowel obstruction and clinically she did appear to be deteriorating and therefore it was my recommendation we proceed with surgical intervention. Hospital Course This is a general summary of the patient's hospital course. For more details refer to the complete medical record. Hospital course: 03/08/2017 PROCEDURE Attempted diagnostic laparoscopy with conversion to exploratory laparotomy and lysis of adhesions. Transferred to CCU in stable condition post op for close observation. 03/09/2017 POD #1 Urine output adequate after NS fluid bolus. Will reposition NG so it is not putting pressure on the superior corner of the nare. She is stable and transferred to surgical unit. Will continue to monitor. 03/10/17 11:25 POD#2 She is doing well, still 700+ ml out of NG Q12 hours, will clamp NG for a few hours, start clear liquids, then if tolerates,will DC NG and start full liquids. Once full liquids are started she can start Farwell and we can DC the HAND DRAWER IN. [place] DC'd voiding without difficulty. Continue to monitor daily labs, WBC still 13.3 03/11/17 11:52 doing well, will advance to regular diet for noon. Passing flatus, no nausea. WBC back to normal Dulcolax tabs now. DC HAND DRAWER IN and tele. laxative to stimulate bowel 03/12/2017 she had a good BM in the morning. Discharged to home with instructions to follow up with Dr. Kern in 1-2 weeks, sooner if concerns arise. Time spent with patient: 25 - 35 minutes DVT Prophylaxis: SCD's, Lovenox GI Prophylaxis: Protonix Discharge Plan - Med Rec/Dispo Referrals/Follow Up: Umer Kern MD [Physician] - 03/23/17 4:00 pm Anshu Instructions: Lysis of Abdominal Adhesions (DC) Prescriptions: New Polyethylene Glycol 3350 [Miralax] 17 gm PO DAILY PRN #5 powd.pack PRN Reason: Constipation Hydrocodone/APAP 5/325 [Farwell 5/325] 1 - 2 tab PO Q5H PRN #30 tab PRN Reason: Pain Continue Ibuprofen 400 mg PO Q4H PRN PRN Reason: Pain diphenhydrAMINE HCl [Benadryl] 25 mg PO Q4H PRN PRN Reason: Prn Orders Discharge Instructions/Outpatient Orders: Final Provider Discharge Instructions Location: Determined By Patient - Disposition 01 Discharged Home, Self-Care
== END 2017-03-12 10:30 | disposition home or self-care (01) | DRG 337 ==
LOC: ED 10:37 → SRG 10:37 → CCU 03-08 18:36 → SRG 03-09 17:25
PROVIDERS: ADMIT Surgery; ATTEND Surgery